=== PATIENT | female | born 1975 | race Caucasian/White ===

== ENCOUNTER 2019-08-17 23:03 | Emergency (ER) | payer MEDICAID, SELFPAY ==
[2019-08-17 23:04] VITALS: BP 162/86; PULSE 100; RESP 19; TEMP 36.3; O2SAT 98; BMI 33.0
--- NOTE | 2019-08-17 23:35 | EKG12_ITS ---
Test Reason : Blood Pressure : / mmHG Vent. Rate : 086 BPM Atrial Rate : 086 BPM P-R Int : 168 ms QRS Dur : 068 ms QT Int : 360 ms P-R-T Axes : 065 004 027 degrees QTc Int : 430 ms Normal sinus rhythm Possible Inferior infarct , age undetermined Abnormal ECG Confirmed by SORAYA TURPIN, TANA ([id number]), purchasing expeditor YARITZA DEMARCO ([id number]) on 08/20/2019 10:03:47 AM Referred By: KIP Confirmed By:MEREDITH LIRA MD
--- NOTE | 2019-08-17 23:36 | ED.VIS.GEN ---
History of Present Illness Chief Complaint: Palpitations Informant: Patient Onset: Hours - 1-2 Context: Sudden Onset - while sitting at rest, watching TV Timing: Intermittent, Lasts - about an hr Quality: racing HB Location: chest/heart Current Severity: gone Maximum Severity: Severe Worsened by: nothing Relieved by: nothing; spontaneously resolved, unk if sudden or gradual Associated Symptoms: anxiety, no other sx Narrative: Patient states she had racing heartbeat and her smart phone told her her heart rate went up to 146. She has checked it with her phone before because she has a significant history of anxiety, states her heart has become fast with anxiety before but has never been over 120s. She is a 2 pack a day smoker. No recent illnesses or new osnu-dcb-spvxyum medications with 1 exception: She states she takes 4 Vicodin per day for chronic pain. She was at her locker and found the pill on the ground right in front of her locker while she was standing there, it looked like 1 of her Vicodin, so she assumed that is what it was pick it up and put it in her pocket. She took it fairly close to before the symptoms started tonight. She has had no medication changes recently. She does no illicit substances or cocaine. She did not drink any caffeine today; he does drink caffeine some days but not every day. She had no presyncopal symptoms, chest pain, shortness of breath, edema, focal neurologic symptoms, or discomfort down in arm or into her jaw. She states that she does get chest pain off-and-on, it is brief, fairly frequent, her last episode was earlier today, it is mid chest and she cannot describe the discomfort because it is too short/brief. Prior similar symptoms: No - Past Medical History (1) Anxiety Status: Chronic Past Medical History - Allergies and Home Meds Allergies/Adverse Reactions: Allergies diphenhydramine HCl [From Benadryl] Allergy (Verified 08/17/19 23:06) Unknown Primary Care Physician: Naga Negrete MD [Primary Care Provider] - Lives: With Family Smoking Status: Current every day smoker Drugs: None Review of Systems General: Denies: Chills, Fever, Sweats Eyes: Denies: Visual changes - bilaterally, Diplopia ENT: Denies: Rhinorrhea, Sore throat Cardiovascular: Reports: Palpitations, Heart racing. Denies: Chest pain Respiratory: Denies: Dyspnea, Cough, Dyspnea on exertion Gastrointestinal: Denies: Abdominal pain, Nausea, Vomiting, Diarrhea, Melena, Hematochezia Genitourinary: Denies: Dysuria, Hematuria, Frequency Musculoskeletal: Denies: Back pain, Extremity Pain Skin: Denies: Rash, Wounds Neurological: Denies: Headache, Weakness, Numbness Psych: Reports: Anxiety - after symptoms developed, but not before. Denies: Suicidal thoughts Physical Exam Vital Signs/Narrative: Vital Signs Temp Pulse Resp BP Pulse Ox 08/17/19 23:04 97.4 F L 100 19 H 162/86 H 98 Inital Vital Signs reviewed: Yes General: Well nourished, Well developed, No Acute Distress Head: Normocephalic, Atraumatic Eyes: Perrl, EOMI ENT: Moist mucous membranes, No rhinorrhea Neck: Supple, Nontender, No JVD Cardiovascular: Regular rate, Regular rhythm, No murmurs, Normal S1, Normal S2 Respiratory: No distress, CTA bilaterally, Chest nontender Abdomen: Soft, Nontender, Nondistended, Normal bowel sounds Back: Nontender, Normal Inspection Extremities: Nontender, No edema. Negative for: Calf Tenderness Skin: Normal color, No rash, No Trauma Neurological: Alert, Oriented x3, Cranial nerves II-XII grossly intact, Normal Strength, Normal Sensation Psychological: Normal Mood, - - a little anxious Diagnostic/Tx/Re-eval Laboratory Results 08/17/19 08/17/19 23:35 23:35 WBC 9.1 RBC 4.45 Hgb 14.2 Hct 43.3 MCV 97.3 MCH 31.9 MCHC 32.8 RDW Std Deviation 45.7 H RDW Coeff of Obey 12.8 Plt Count 360 MPV 10.0 Immature Gran % (Auto) 0.300 Neut % (Auto) 51.1 Lymph % (Auto) 38.5 Pennington % (Auto) 8.2 Eos % (Auto) 1.5 Baso % (Auto) 0.4 Absolute Neuts (auto) 4.6 Absolute Lymphs (auto) 3.49 Nucleated RBC % 0 Sodium 143 Potassium 3.5 Chloride 109 H Carbon Dioxide 26.0 Anion Gap 8 BUN 12 Creatinine 0.66 Estim Creat Clear Calc 122.95 Est GFR (MDRD) Af Amer 124 Est GFR (MDRD) Non-Af 102 BUN/Creatinine Ratio 18.1 Glucose 104 Calcium 8.7 Troponin I < 0.015 - Rhythm Strip Rhythm Strip: Sinus Rhythm Rate: 86 Ectopy: None - EKG Initial EKG Interpretation: Sinus Rhythm, No Acute Injury Pattern, - - nonpathologic inf Q waves; otherwise, normal EKG - Medical Decision Making Patient had no recurrence of dysrhythmia while in the emergency department. All of her labs including troponin are normal. Her EKG is normal. She is asymptomatic except for her at one point she had 1 or 2 minutes of intermittent dull nonpleuritic discomfort in her mid chest that went along with her heartbeat. It did not give her any tachycardia, PVCs, other symptoms. Similar to what she has had frequently and briefly in the past. She is extremely anxious. As I discussed with her, I am not concluding that this cause her symptoms tonight, I cannot rule out the possibility of a dysrhythmia but she is low risk for cardiac or myocardial event by following up with specialist as an outpatient. She states she has had a stress test in the past that was negative, she had a Holter monitor at one point that was unremarkable but she does not know details. Advised to follow-up. All questions answered at the bedside. ED Disposition - Plan for ED Patient: Disposition: Home or Assisted Living Diagnosis: Anxiety, Palpitations Instructions: Palpitations Referrals: Tj Shah MD [STAFF PHYSICIAN] - (call for appt)
[2019-08-17 23:46] LABS: Absolute Lymphocyte Count 3.49 X10^3/uL (0.83-4.51); Absolute Neutrophil Count 4.6 X10^3/uL (2.0-7.7); Basophil# 0.04 X10^3/uL; Basophil% 0.4 % (0-1); Eosinophil# 0.14 X10^3/uL; Eosinophils% 1.5 % (0-5); Hematocrit 43.3 % (37-47); Hemoglobin 14.2 g/dL (12.0-15.0); Lymphocyte # 3.49 X10^3/ul (4.0); Lymphocyte % 38.5 % (19-41); Mean Corp Hgb Conc 32.8 g/dL (32-36); Mean Corpuscular Hgb 31.9 pg (27.0-32.0); Mean Corpuscular Volume 97.3 fL (81-99); Monocyte# 0.74 X10^3/uL; Monocyte% 8.2 % (0-10); NRBC Flagged by Analyzer 0 % (0-5); Neutrophil # 4.62 X10^3/uL (2.7-7.7); Neutrophil % 51.1 % (47-70); Platelet Count 360 K/mm3 (150-450); RBC Distribution Width CV 12.8 % (11.6-14.6); RBC Distribution Width SD 45.7 fl (35.1-43.9); Red Blood Count 4.45 M/mm3 (4.2-5.4); White Blood Count 9.1 K/mm3 (4.4-11.0)
[2019-08-18 00:03] LABS: Anion Gap 8 (5-15); BUN 12 mg/dL (7-18); BUN/Creat Ratio 18.1 RATIO (10-20); Calcium,Total 8.7 mg/dL (8.5-10.1); Chloride 109 mmol/L (98-107); Creatinine, Serum 0.66 mg/dL (0.55-1.02); EST Glomerular Filtration Rate 102 mL/min (>60); Est Glom Filt Rate - Afr Amer 124 mL/min (>60); Estimated Creatinine Clearance 122.95 ml/min; Glucose 104 mg/dL (74-106); Potassium 3.5 mmol/L (3.5-5.1); Sodium Level 143 mmol/L (136-145)
[2019-08-18 00:44] VITALS: BP 148/70; PULSE 85; RESP 14; O2SAT 97
== END 2019-08-18 00:45 | disposition home or self-care (01) ==
PROVIDERS: Emergency Provider Emergency Medicine; Family Provider Family Medicine; PCP Family Medicine
DX: F41.9 Anxiety disorder, unspecified (principal); R00.2 Palpitations; F17.210 Nicotine dependence, cigarettes, uncomplicated; Z88.8 Allergy status to other drugs, medicaments and biological substances
CPT/HCPCS: 80048; 84484; 85025; 93005; 99285; A4216

== ENCOUNTER → 2020-12-04 13:36 | Outpatient (CLI) | payer MEDICAID, SELFPAY ==
--- NOTE | 2020-12-04 13:39 | BI_ITS ---
MAMMOGRAPHY - BILATERAL SCREENING REASON FOR EXAM: Female, 45 years old. Routine annual screening examination. PERTINENT HISTORY: Non-contributory. TECHNIQUE: Digital bilateral breast juaquin (3D mammographic acquisition) in the CC and MLO projections. 2-D mediolateral oblique (MLO) and craniocaudad (CC) views of both breasts were obtained. CAD: Full Field Digital Mammography with Computer Added Detection was performed. COMPARISON: None. Baseline examination. FINDINGS: Breast Composition: There are scattered areas of fibroglandular density. There are no dominant masses or suspicious calcifications. No other significant abnormalities are identified. BI/SCRN MAMM (CAD)W/JUAQUIN BILAT IMPRESSION: Negative screening mammogram. Yearly followup mammogram recommended. (A) ASSESSMENT CATEGORY: BIRADS Category 1: Negative. A letter regarding these results will be sent to the patient by the facility within 30 days. Approximately 10% of breast cancers are not detected by mammography. A normal mammogram should not delay biopsy of a clinically suspicious abnormality. [id number] Electronically Signed: Kenny Weeks MD at 14:25 EDT , Service support ,
== END ==
PROVIDERS: PCP Family Medicine; Referring Provider Family Medicine; Visit Provider Family Medicine
DX: Z12.31 Encounter for screening mammogram for malignant neoplasm of breast (principal)
CPT/HCPCS: 77063; 77067

== ENCOUNTER 2022-07-23 05:59 | Day surgery (SDC) | payer MEDICAID, SELFPAY ==
[2022-07-22 11:15] LABS: Hematocrit 42.8 % (37-47); Hemoglobin 14.3 g/dL (12.0-15.0); Mean Corp Hgb Conc 33.4 g/dL (32-36); Mean Corpuscular Volume 98.8 fL (81-99); Mean Platelet Vol. 10.6 fl (6.2-12.0); Platelet Count 366 K/mm3 (150-450); RBC Distribution Width SD 47.3 fl (35.1-43.9); Red Blood Count 4.33 M/mm3 (4.2-5.4)
[2022-07-23] VITALS (10 sets, daily range): BP systolic 121–146; BP diastolic 75–117; PULSE 77–89; RESP 16–17; TEMP 36.3–37.2; O2SAT 96–98; BMI 34.0
--- NOTE | 2022-07-23 | EMB_PTH ---
PATIENT: YOVANY SUMNER I LOC: [facility] [place] U#:[id number] AGE/SX: 46/F ROOM: RE07/23/[address]: Dr. Jeanette Kulkarni DO : 1975 BED: DIS: 07/23/2022 SPEC #: [id number] RECD: 07/23/22 10:36 STATUS: DARIAN LINN #: [id number] TRACEY: 07/23/22 00:[address]: Jeanette Kulkarni DEPT: SURGICAL PATHOLOGY RECD BY: Lukasz Baxter ENTERED: 07/23/22 10:37 SP TYPE: ENDOM BX/C BRUCE DR: Dr. Naga Negrete MD Tissues: Endometrium, NOS Procedures: Surgery Specimen Level IV HEADER OPERATION: Hysteroscopy, D & C, polypectomy, Guerita ablation PRE-OP DIAGNOSIS: Menorrhagia TISSUE SUBMITTED: Endometrial curettings MICROSCOPIC DIAGNOSIS Endometrial curettings: Proliferative endometrium. A fragment of benign ectocervical epithelium. SJ:stoney 07/24/2022 MICROSCOPIC DESCRIPTION Slides are reviewed. GROSS DESCRIPTION Received in fixative is one container labeled with the patient's name and designated endometrial curettings. The specimen consists of multiple fragments of hemorrhagic soft tissue that in aggregate measure 7.5 x 3 x 0.3 cm. The entire specimen is submitted in three cassettes. / BRANDON:stoney 07/23/2022 TC:4 CPT: 83295
[2022-07-23 06:31] LABS: Internal QC Validated? YES +Cl - CLEAR BKGD; Pregnancy, Urine Negative Negative
--- NOTE | 2022-07-23 08:09 | DCINST_ITS ---
Discharge Instructions Diet Discharge Diet: No restrictions Activity Discharge Activity: May Drive (once you are more than 24 hours out from surgery) and May Shower (once you are more than 24 hours out from surgery) May resume sexual activity in: 1-2 weeks (no intercourse, tampons, hot tubs, baths, or pools while you are having the bleeding) Weight Bearing Status: Weight bearing as tolerated Lifting Restrictions: none Dressing / Incision Call your doctor if you observe: Fever of 101 or Higher, Coldness, Increased Pain, Numbness or Tingling, Change in Color, Inability to urinate, Inability to have a bowel movement, Using more than 1 pad per hour, Shortness of breath, Dizziness, Fainting spells, Swelling in the ankles, Chest pain, Increased palpitations (irregular heartbeat), Calf discomfort and Uncontrolled pain Follow Up Care Please Follow Up With: Jeanette Kulkarni DO When: 1-2 weeks Test Results: Test results from this visit will be discussed in further detail at your follow- up appointment, if applicable. Discharge Plan Admission Primary Reason for Your Visit: surgery Attending Provider: Jeanette Kulkarni Primary Care Provider: Naga Negrete Discharge Orders/Prescriptions Prescriptions: Continued lorazepam 0.5 MG tablet 1 mg PO QHS PRN PRN (Reason: Anxiety) hydrocodone-acetaminophen [Vicodin] 1 EACH tablet 2 tab PO Q4H PRN PRN (Reason: Pain) cyclobenzaprine 10 MG tablet 10 mg PO TID PRN PRN (Reason: Muscle Spasm) meloxicam 7.5 MG tablet 7.5 mg PO BID epinephrine 0.3 MG syringe 0.3 mg IM X1 Qty: 2 0RF amitriptyline 25 MG tablet 25 mg PO QHS PRN PRN (Reason: Anxiety) Referrals / Follow Up: Naga Negrete MD [Primary Care Provider] - Disposition Disposition (needs filled in before D/C Order can be placed): Home, Self Care
--- NOTE | 2022-07-23 08:13 | PCM.OPRPT ---
Problems Associated Problem List Diagnoses (1) Menorrhagia: Report of Operation Date of Procedure: 07/23/22 Pre-Operative Diagnosis: Menorrhagia, endometrial polyp on pelvic US Post-Operative Diagnosis: Menorrhagia Surgery/Procedure Performed:: Hysteroscopy, D&C, Guerita uterine ablation Description of Surgical Findings:: No polyps or fibroids noted. Normal appearing uterine cavity with bilateral tubal ostia visualized. Uterus sounded to 8 cm. Cervical length of 3.5 cm. Surgeon: Jeanette Kulkarni concrete buster operator: None Type of Anesthesia: MAC Special Medications: None Specimen's removed: Endometrial curettings Drains: None Estimated Blood Loss (mL): < 50 cc Fluids Replaced: 450 cc deficit Description of Procedure: The patient was taken to the operating room where MAC anesthesia was found to be adequate. She was prepped and draped in the dorsal lithotomy position using yellowfin stirrups. A weighted speculum was placed in the vagina to expose the cervix. The anterior lip of the cervix was grasped with a single-tooth tenaculum. The cervix was already dilated to accommodate the Symphion hysteroscope. The hysteroscope was advanced into the uterus, and normal saline was used as distention media. The uterine cavity was normal-appearing and bilateral tubal ostia were visualized. There were no polyps or fibroids noted in the uterus or cervix. This resecting Symphion device was used to sample the endometrium, without entry into the myometrium. The hysteroscope was then removed. A significant amount of fluid was noted on the floor at this time. Sharp curettage was then performed for moderate amount of tissue. The endometrial curettings were sent to the pathologist for review. Using the tapered cervical length measurement device, the cervical length was measured at 3 to 4 cm. The hysteroscope was then advanced to also measure the cervical length. Cervical length was found to be 3.5 cm. The Guerita ablation device was set to a uterine cavity length of 4.5 cm. The Guerita device passed the cavity assessment test. The Guerita uterine ablation was performed in usual sterile fashion. The device was removed. Bleeding was hemostatic. All instruments were removed from the vagina. Vaginal sweep was performed. Instrument sponge counts were correct. The patient was taken to recovery in stable condition. Grafts/Implants Used: None Complications None Admit VTE Documentation VTE Present on Admission: No VTE Mechan Device Prophylaxis: SCD's
[2022-07-23] MEDS: Lactated Ringers 1,000 ML 15 ML IV (08:45)
== END 2022-07-23 09:41 | disposition home or self-care (01) ==
LOC: SDC 06:00 → AC 06:00
PROVIDERS: PCP Family Medicine; Referring Provider Obstetrics & Gynecology; Visit Provider Obstetrics & Gynecology
PROC: 0UB98ZZ Excision of Uterus, Via Natural or Artificial Opening Endoscopic (ICD-10-PCS; CPT 58558; principal; 2022-07-23 07:15)
DX: N92.0 Excessive and frequent menstruation with regular cycle (principal); N84.0 Polyp of corpus uteri; K21.9 Gastro-esophageal reflux disease without esophagitis; Z98.51 Tubal ligation status; F17.210 Nicotine dependence, cigarettes, uncomplicated; N92.4 Excessive bleeding in the premenopausal period
CPT/HCPCS: 58563; 00952; 36415; 81025; 85027; 86850; 86900; 86901; 88305; J7120; J2405

== ENCOUNTER 2025-02-23 13:42 | Inpatient (IN) | payer MEDICAID, SELFPAY ==
[2025-02-23] VITALS (25 sets, daily range): BP systolic 107–151; BP diastolic 63–99; PULSE 72–97; RESP 16–31; TEMP 36.3–36.8; O2SAT 67–98; BMI 35.4; BMI 34.8
--- NOTE | 2025-02-23 13:47 | ED.RN ---
Arrives with complaint of chest pain was 67% RA with blue/purple lips and states she cannot breathe.
[2025-02-23] MEDS: MethylPREDNISolone 125 MG/2 ML Vial IV (14:04)
[2025-02-23] MEDS: Ipratropium/Albuterol Sulfate 3 ML AMPUL.NEB INHALATION (14:04)
--- NOTE | 2025-02-23 14:05 | RAD_ITS ---
PROCEDURE: CHEST 1 VIEW (PORTABLE) 02/23/2025 REASON FOR EXAM: DYSPNEA TECHNIQUE: Frontal view of the chest. FINDINGS: The cardiac and mediastinal contours are normal. The lungs are clear. RAD/Chest 1 View (Portable) IMPRESSION: NEGATIVE SINGLE VIEW OF THE CHEST. Reading [facility]
[2025-02-23 14:10] LABS: Absolute Lymphocyte Count 1.85 X10^3/uL (0.83-4.51); Absolute Neutrophil Count 10.1 X10^3/uL (2.0-7.7); Basophil# 0.05 X10^3/uL; Basophil% 0.4 % (0-1); Eosinophil# 0.01 X10^3/uL; Eosinophils% 0.1 % (0-5); Hemoglobin 17.3 g/dL (12.0-15.0); Lymphocyte # 1.85 X10^3/ul (0.83-4.51); Lymphocyte % 14.2 % (19-41); Mean Corp Hgb Conc 31.1 g/dL (32-36); Mean Corpuscular Hgb 31.7 pg (27.0-32.0); Mean Platelet Vol. 11.3 fl (6.2-12.0); Monocyte% 7.7 % (0-10); NRBC Flagged by Analyzer 0 % (0-5); Neutrophil % 77.3 % (47-70); Platelet Count 264 K/mm3 (150-450); RBC Distribution Width CV 14.6 % (11.6-14.6); RBC Distribution Width SD 54.3 fl (35.1-43.9); Red Blood Count 5.45 M/mm3 (4.2-5.4); White Blood Count 13.1 K/mm3 (4.4-11.0)
[2025-02-23 14:11] LABS: Hematocrit 55.6 % (37-47)
[2025-02-23] MEDS: Albuterol 2.5 MG/3 ML VIAL.NEB. INHALATION ×3 (14:11→15:37)
--- NOTE | 2025-02-23 14:15 | CT_ITS ---
EXAM: CT Angiography Chest Without and With Intravenous Contrast CLINICAL INDICATION: PULMONARY EMBOLSIM TECHNIQUE: Axial computed tomographic angiography images of the chest without and with intravenous contrast. This CT exam was performed using one or more of the following dose reduction techniques: automated exposure control, adjustment of the mA and/or kV according to patient size, and/or use of iterative reconstruction technique. MIP reconstructed images were created and reviewed. COMPARISON: No relevant prior studies available. FINDINGS: LIMITATIONS: Suboptimal opacification of the pulmonary arteries. PULMONARY ARTERIES: No pulmonary embolism is identified. Some of the distal pulmonary arteries cannot be evaluated due to suboptimal opacification. AORTA: No acute findings. No thoracic aortic aneurysm. LUNGS AND PLEURAL SPACES: Lung emphysema/COPD. Right lower lobe atelectasis or scarring. No mass. No significant effusion. No pneumothorax. HEART: Unremarkable. No cardiomegaly. No significant pericardial effusion. No evidence of RV dysfunction. BONES/JOINTS: No acute fracture. No dislocation. SOFT TISSUES: Unremarkable. LYMPH NODES: Unremarkable. No enlarged lymph nodes. CT/CTA Chest W/WO Contrast IMPRESSION: No pulmonary embolism is identified. Some of the distal pulmonary arteries can not be evaluated due to suboptimal opacification. Reading Location[facility]
[2025-02-23 14:28] LABS: Anion Gap 11 (5-15); BUN 16 mg/dL (4-19); BUN/Creat Ratio 22.4 RATIO (10-20); Calcium,Total 9.3 mg/dL (7.6-11.0); Carbon Dioxide 30.2 mmol/L (21.0-32.0); Chloride 98 mmol/L (98-108); EST Glomerular Filtration Rate 105 (>60); Estimated Creatinine Clearance 88.09 ml/min (50-250); Glucose 123 mg/dL (70-99); Potassium 4.8 mmol/L (3.3-5.1); Sodium Level 139 mmol/L (133-145)
[2025-02-23] MEDS: Ketorolac 30 MG/ML Syringe IV (15:01)
[2025-02-23] MEDS: 0.9% Normal Saline (1000mL) 1,000 ML 999 ML IV (15:03)
--- NOTE | 2025-02-23 15:03 | ED.VIS.CHEST ---
HPI History of Present Illness Chief Complaint: Chest Pain Informant: patient Narrative Narrative: 49-year-old female with a history of COPD presenting to the emergency room with chief complaint of chest pain. Patient states that yesterday she lifted a couple of cases of pop up almost over her head. This morning when she awoke she felt like she could not take a deep breath and she noted chest pain (unable to qualify it other than pain) over the anterior lower chest. She notes some pain in the mid back. Worse with movement. She states that she was feeling disorientated particularly with ambulation and because she could not breathe came to emergency. She states she has an inhaler at home which she thinks may be Symbicort. She denies any fever significant cough. States that she recently started vaping a couple weeks ago. She denies DVT PE risk factors. Patient noted to be 67% on room air in triage. [facility] Medical History Alcohol use Arthritis Back pain Gastric reflux Emphysema, unspecified Shortness of breath on exertion Hoarseness Smoker History of stress test Home Medications ?Medication ?Instructions ?Recorded ?Last Taken ?Type lorazepam 0.5 mg tablet 1 mg PO QHS PRN PRN Anxiety 10/07/13 Unknown History cyclobenzaprine 10 mg tablet 10 mg PO TID PRN PRN Muscle Spasm 01/06/15 Unknown History meloxicam 7.5 mg tablet 7.5 mg PO BID 01/06/15 Unknown History epinephrine 0.3 mg/0.3 mL 0.3 mg (0.3 mL) IM X1 #2 syringes 05/04/16 Unknown Rx injection, auto-injector duloxetine 60 mg capsule,delayed 60 mg PO DAILY 09/25/22 Unknown History release (Cymbalta) albuterol sulfate 2.5 mg/3 mL 2.5 mg continuous nebulization Q6H 02/23/25 Unknown History (0.083 %) solution for nebulization PRN PRN shortness of breath or wheezing albuterol sulfate 90 mcg/actuation 1 - 2 puff inhalation Q6H 02/23/25 Unknown History aerosol inhaler amitriptyline 50 mg tablet 50 mg PO QHS 02/23/25 Unknown History budesonide-formoterol HFA 160 2 puff inhalation BID 02/23/25 Unknown History mcg-4.5 mcg/actuation aerosol inhaler (Symbicort) escitalopram oxalate 20 mg tablet 20 mg PO DAILY 02/23/25 Unknown History oxycodone-acetaminophen 10 mg-325 0.5 - 1 tab PO Q8H PRN PRN pain 02/23/25 Unknown History mg tablet Allergy/AdvReac Type Severity Reaction Status Date / Time diphenhydramine HCl (From Allergy Unknown Verified 02/23/25 16:02 Benadryl) sulfamethoxazole Allergy PT UNSURE Verified 02/23/25 16:02 OF REACTION tramadol Allergy Other Verified 02/23/25 16:02 Surgical History History of tubal ligation History of selective injection of anesthetic agent around lumbar nerve root History of foot surgery History of Social History Smoking Status: Current every day smoker tobacco type: cigarettes Tobacco: How many years used: 30 ROS ROS ED Constitutional Constitutional ED: Denies chills, fever(s) or weight loss Eyes Eyes: Denies change in vision or diplopia ENT ENT ED: Denies ear pain, rhinorrhea or sore throat Cardiovascular Cardiovascular: Reports as per HPI and chest pain; Denies orthopnea, palpitations or racing heartbeat Respiratory/Chest Respiratory/Chest: Reports dyspnea; Denies cough or orthopnea Gastrointestinal Gastrointestinal: Denies abdominal pain, diarrhea, nausea or vomiting Genitourinary Genitourinary ED: Denies dysuria, hematuria or urinary frequency Musculoskeletal Musculoskeletal: Denies arthralgias or myalgias Integumentary Denies abscess or rash Neurologic Neurologic: Denies headache(s) or weakness Psychiatric Psychiatric: Denies anxiety, depression, suicidal ideation or suicidal thoughts Endocrine Endocrinology: Denies polydipsia, polyphagia or polyuria Allergic/Immunologic Allergic/Immunologic ED: Denies mouth swelling, tongue swelling or urticaria EXAM Physical Exam Const Vital Signs: 02/23/25 13:42 02/23/25 13:50 02/23/25 13:50 Temperature 98.3 F Temperature Source Oral Pulse Rate 91 Respiratory Rate 29 H Respiratory Effort Short of Breath Labored Respiratory Depth Respiratory Pattern Tachypnea Blood Pressure 151/99 H Blood Pressure Mean 116 Pulse Ox 67 97 Oxygen Delivery Method Room Air Nasal Cannula Oxygen Flow Rate (L/min) 6 02/23/25 13:54 02/23/25 14:04 02/23/25 14:04 Temperature 98.3 F Temperature Source Oral Pulse Rate 92 90 Respiratory Rate 31 H 24 H Respiratory Effort Respiratory Depth Respiratory Pattern Blood Pressure 151/99 H Blood Pressure Mean 116 Pulse Ox 94 95 Oxygen Delivery Method Nasal Cannula Nasal Cannula Oxygen Flow Rate (L/min) 5 5 02/23/25 14:06 02/23/25 14:06 02/23/25 14:09 Temperature Temperature Source Pulse Rate 92 Respiratory Rate 21 H Respiratory Effort Short of Breath Labored Respiratory Depth Shallow Respiratory Pattern Tachypnea Blood Pressure Blood Pressure Mean Pulse Ox 96 95 Oxygen Delivery Method Nasal Cannula Nasal Cannula Oxygen Flow Rate (L/min) 5 5 02/23/25 14:15 02/23/25 14:30 02/23/25 14:30 Temperature Temperature Source Pulse Rate 93 96 Respiratory Rate 22 H 27 H Respiratory Effort Respiratory Depth Respiratory Pattern Blood Pressure 130/94 H 112/96 H 112/96 H Blood Pressure Mean 104 101 101 Pulse Ox 92 Oxygen Delivery Method Oxygen Flow Rate (L/min) 02/23/25 14:45 02/23/25 14:46 02/23/25 15:00 Temperature Temperature Source Pulse Rate 97 96 Respiratory Rate 29 H 27 H Respiratory Effort Respiratory Depth Respiratory Pattern Blood Pressure 131/73 H 133/85 H Blood Pressure Mean 92 95 Pulse Ox 91 90 Oxygen Delivery Method Oxygen Flow Rate (L/min) 02/23/25 15:04 02/23/25 15:07 02/23/25 15:15 Temperature 98.1 F Temperature Source Oral Pulse Rate 91 Respiratory Rate 28 H Respiratory Effort Respiratory Depth Respiratory Pattern Blood Pressure 133/85 H 107/71 Blood Pressure Mean 101 82 Pulse Ox 88 90 Oxygen Delivery Method Nasal Cannula Nasal Cannula Oxygen Flow Rate (L/min) 5 6 02/23/25 15:30 02/23/25 15:37 02/23/25 15:37 Temperature Temperature Source Pulse Rate 85 86 Respiratory Rate 16 19 H Respiratory Effort Respiratory Depth Respiratory Pattern Blood Pressure 109/72 Blood Pressure Mean 82 Pulse Ox 96 98 Oxygen Delivery Method Nasal Cannula Oxygen Flow Rate (L/min) 6 02/23/25 15:45 02/23/25 15:54 02/23/25 16:00 Temperature 98.1 F Temperature Source Oral Pulse Rate 87 88 83 Respiratory Rate 25 H 22 H 20 H Respiratory Effort Respiratory Depth Respiratory Pattern Blood Pressure 119/75 119/75 109/69 Blood Pressure Mean 89 89 80 Pulse Ox 95 94 98 Oxygen Delivery Method Nasal Cannula Nasal Cannula Oxygen Flow Rate (L/min) 3 3 02/23/25 16:00 Temperature 98.2 F Temperature Source Oral Pulse Rate 82 Respiratory Rate 16 Respiratory Effort Respiratory Depth Respiratory Pattern Blood Pressure 110/75 Blood Pressure Mean 86 Pulse Ox 95 Oxygen Delivery Method Nasal Cannula Oxygen Flow Rate (L/min) 3 Positive well nourished and well developed General Appearance ED: well developed HEENT Reports normocephalic, head/scalp atraumatic and moist mucous membranes Eyes PERRL and EOMs intact bilaterally Neck no lymphadenopathy, supple and no JVD Resp Resp Narrative: Patient is tachypneic with significantly diminished bilateral breath sounds and expiratory wheezing. Auscultation: wheezes and diminished lung sounds Cardio regular rate, regular rhythm and no murmurs GI normal to inspection, nondistended, normoactive bowel sounds and non-tender Palpation: soft Back/Spine no CVA tenderness and normal ROM Extremity normal to inspection General Extremety ED: Negative for edema General Extremity: Negative for edema Neuro oriented x3 and CN's II-XII intact bilaterally Sensorium / Orientation: alert Motor Exam: strength 5/5 throughout Psych mental status grossly normal Mood & Affect: Negative for depressed or tearful Skin no rashes or lesions noted and no wounds MDM MDM MDM Narrative Medical decision making narrative: Differential diagnosis includes but not limited to COPD exacerbation pneumothorax pulmonary embolism acute coronary syndrome thoracic chest myofascial strain pneumonia pleural effusion EKG done upon arrival shows a normal sinus rhythm at a rate of 93 bpm. Patient was placed on supplemental oxygen. White count 13.1 creatinine 0.70 glucose 123. My independent interpretation of the chest x-ray is cardiomegaly no acute process. CTA of the chest was obtained. This does not demonstrate obvious pulmonary embolism though distal pulmonary arteries were difficult to evaluate given suboptimal opacification per radiology. Troponin 2 is down to 46. proBNP 714. Patient received breathing treatments and Solu-Medrol. She also received a dose of Toradol and her scheduled dose of oxycodone. Patient is down to 3 L nasal cannula. Plan of care is admission to the hospital History & Record Review Discussion w/independent historian: Patient and Family Additional record(s) reviewed:: Prior outpatient record, Prior ED visit and Prior labs Lab Data Attestation: I reviewed the patient's lab results. Labs: Laboratory Results - last 24 hr 02/23/25 02/23/25 13:50 15:50 WBC 13.1 H RBC 5.45 H Hgb 17.3 H Hct 55.6 H MCV 102.0 H MCH 31.7 MCHC 31.1 L RDW Std Deviation 54.3 H RDW Coeff of Obey 14.6 Plt Count 264 MPV 11.3 Immature Gran % (Auto) 0.300 Neut % (Auto) 77.3 H Lymph % (Auto) 14.2 L [place] % (Auto) 7.7 Eos % (Auto) 0.1 Baso % (Auto) 0.4 Absolute Neuts (auto) 10.1 H Absolute Lymphs (auto) 1.85 Nucleated RBC % 0 Sodium 139 Potassium 4.8 Chloride 98 Carbon Dioxide 30.2 Anion Gap 11 BUN 16 Creatinine 0.70 Estim Creat Clear Calc 88.09 Est GFR (MDRD) Non-Af 105 BUN/Creatinine Ratio 22.4 H Glucose 123 H Calcium 9.3 Troponin T High Sens 63 H* Troponin T Hi Sens 2 Hr 46 H NT pro BNP II 714 Radiography Diagnostic Testing: Clinical Impression(s) from Imaging Studies Chest X-Ray 02/23/25 14:05 IMPRESSION: NEGATIVE SINGLE VIEW OF THE CHEST. Reading Location: [facility] Chest CTA 02/23/25 14:15 IMPRESSION: No pulmonary embolism is identified. Some of the distal pulmonary arteries cannot be evaluated due to suboptimal opacification. Reading Location: [facility] EKG Initial EKG: Attestation: I personally reviewed and interpreted this EKG as follows: Comments: Normal sinus rhythm ventricular rate of 93 bpm. Management Discussion w/another healthcare provider: Hospitalist (Dr Locke) Discharge Plan Triage Chief Complaint: Chest Pain ED Provider: Cristofer Avila Dx/Rx/DC Orders Clinical Impression: Acute exacerbation of chronic obstructive pulmonary disease, Acute hypoxic respiratory failure, Chest pain Prescriptions: No Action duloxetine [Cymbalta] 60 mg capsule,delayed release(DR/EC) 60 mg PO DAILY lorazepam 0.5 MG tablet 1 mg PO QHS PRN PRN (Reason: Anxiety) cyclobenzaprine 10 MG tablet 10 mg PO TID PRN PRN (Reason: Muscle Spasm) meloxicam 7.5 MG tablet 7.5 mg PO BID epinephrine 0.3 MG syringe 0.3 mg IM X1 Qty: 2 0RF albuterol sulfate 2.5 mg /3 mL (0.083 %) solution for nebulization 2.5 mg continuous nebulization Q6H PRN PRN (Reason: shortness of breath or wheezing) amitriptyline 50 mg tablet 50 mg PO QHS oxycodone-acetaminophen 10-325 mg tablet 0.5 - 1 tab PO Q8H PRN PRN (Reason: pain) escitalopram oxalate 20 mg tablet 20 mg PO DAILY albuterol sulfate 90 mcg/actuation HFA aerosol inhaler 1 - 2 puff INHALATION Q6H budesonide-formoterol [Symbicort] 160-4.5 mcg/actuation HFA aerosol inhaler 2 puff INHALATION BID Primary Care Provider: Naga Negrete Referrals: Naga Negrete MD [Primary Care Provider] - Print Language: Macedonian
[2025-02-23 15:08] LABS: Pro- Brain NATRIURETIC PEPTIDE 714 pg/mL (<=900); Troponin T High Sensitivity 63 ng/L (<=14)
[2025-02-23] MEDS: oxyCODONE 5 MG Tablet 10 MG PO ×2 (16:13→20:02)
[2025-02-23 16:29] LABS: Troponin T High Sens 2 HR 46 ng/L (<=14)
--- NOTE | 2025-02-23 16:58 | HP.PCM.HOS_ITS ---
HPI - General General Date of Admission: 02/23/25 Date of Service: 02/23/25 Chief Complaint: SOB HPI Narrative YOVANY SUMNER, is a 49 F with pmhx of COPD with smoking history, and arthritis who presents to the ER with SOB. The patient woke up feeling like it was hard to breathe. She had pain in the chest with taking a deep breath, and was SOB at rest and with exertion. Chest pain was across the lower chest/diaphragm anteriorly. She attributed the pain to hurting her back yesterday while lifting 24 packs of beverages up to neck height. Pt was brought to the ER and found to have an O2 sat of 67% on RA. She does not use home O2. She improved on 6lpm and remained stable weaning down to 3lpm o2 via NC. Troponin in the ER was somewhat elevated. BNP negative. CXR and CTA negative. She has not felt ill this week or today. She currently is resting comfortably in bed with no SOB. She has no cough. She still has some pain with taking a deep breath. [facility] Medical History Alcohol use Arthritis Back pain Gastric reflux Emphysema, unspecified Shortness of breath on exertion Hoarseness Smoker History of stress test Home Medications ?Medication ?Instructions ?Recorded ?Last Taken ?Type lorazepam 0.5 mg tablet 1 mg PO QHS PRN PRN Anxiety 10/07/13 Unknown History cyclobenzaprine 10 mg tablet 10 mg PO TID PRN PRN Musc le Spasm 01/06/15 Unknown History meloxicam 7.5 mg tablet 7.5 mg PO BID 01/06/15 Unkno wn History epinephrine 0.3 mg/0.3 mL 0.3 mg (0.3 mL) IM X1 #2 syr inges 05/04/16 Unknown Rx injection, auto-injector duloxetine 60 mg capsule,delayed 60 mg PO DAILY Unknown History release (Cymbalta) albuterol sulfate 2.5 mg/3 mL 2.5 mg continuous nebuli zation Q6H 02/23/25 Unknown History (0.083 %) solution for nebulization PRN PRN shortness of breath or wheezing albuterol sulfate 90 mcg/actuation 1 - 2 puff inhalati on Q6H 02/23/25 Unknown History aerosol inhaler amitriptyline 50 mg tablet 50 mg PO QHS 02/23/25 Unkno wn History budesonide-formoterol HFA 160 2 puff inhalation BID Unknown History mcg-4.5 mcg/actuation aerosol inhaler (Symbicort) escitalopram oxalate 20 mg tablet 20 mg PO DAILY 02/23 Unknown History oxycodone-acetaminophen 10 mg-325 0.5 - 1 tab PO Q8H P RN PRN pain 02/23/25 Unknown History mg tablet Allergy/AdvReac Type Severity Reaction Status Date / Time diphenhydramine HCl (From Allergy Unknown Verified 02/23/25 16:02 Benadryl) sulfamethoxazole Allergy PT UNSURE Verified 02/23/25 16:02 OF REACTION tramadol Allergy Other Verified 02/23/25 16:02 Surgical History History of tubal ligation History of selective injection of anesthetic agent around lumbar nerve root History of foot surgery History of Social History Smoking Status: Current every day smoker tobacco type: cigarettes Tobacco: How many years used: 30 ROS Constitutional Constitutional: Denies chills or fatigue Eyes Eyes: Denies blurry vision ENT HEENT: Denies abnormal hearing Cardiovascular Cardiovascular: Reports chest pain; Denies edema, lightheadedness, orthopnea or palpitations Respiratory/Chest Respiratory/Chest: Reports dyspnea, shortness of breath at rest, shortness of breath with exertion and wheezing; Denies cough Gastrointestinal Gastrointestinal: Denies abdominal pain, diarrhea, nausea or vomiting Genitourinary Genitourinary: Denies burning urination Musculoskeletal Musculoskeletal: Reports arthralgias and back pain Neurologic Neurologic: Denies abnormal gait Psychiatric Psychiatric: Denies anxiety or depression Endocrine Endocrinology: Denies change in body appearance Hematologic/Lymphatic Hematologic/Lymphatic: Denies anemia Allergic/Immunologic Allergic/Immunologic: Denies rhinitis Vital Signs Vital Signs Vital Signs: 02/23/25 13:42 02/23/25 13:50 02/23/25 13:50 Temperature 98.3 F Temperature Source Oral Pulse Rate 91 Respiratory Rate 29 H Respiratory Effort Short of Breath Labored Respiratory Depth Respiratory Pattern Tachypnea Blood Pressure 151/99 H Blood Pressure Mean 116 Pulse Ox 67 97 Oxygen Delivery Method Room Air Nasal Cannula Oxygen Flow Rate (L/min) 6 02/23/25 13:54 02/23/25 14:04 02/23/25 14:04 Temperature 98.3 F Temperature Source Oral Pulse Rate 92 90 Respiratory Rate 31 H 24 H Respiratory Effort Respiratory Depth Respiratory Pattern Blood Pressure 151/99 H Blood Pressure Mean 116 Pulse Ox 94 95 Oxygen Delivery Method Nasal Cannula Nasal Cannula Oxygen Flow Rate (L/min) 5 5 02/23/25 14:06 02/23/25 14:06 02/23/25 14:09 Temperature Temperature Source Pulse Rate 92 Respiratory Rate 21 H Respiratory Effort Short of Breath Labored Respiratory Depth Shallow Respiratory Pattern Tachypnea Blood Pressure Blood Pressure Mean Pulse Ox 96 95 Oxygen Delivery Method Nasal Cannula Nasal Cannula Oxygen Flow Rate (L/min) 5 5 02/23/25 14:15 02/23/25 14:30 02/23/25 14:30 Temperature Temperature Source Pulse Rate 93 96 Respiratory Rate 22 H 27 H Respiratory Effort Respiratory Depth Respiratory Pattern Blood Pressure 130/94 H 112/96 H 112/96 H Blood Pressure Mean 104 101 101 Pulse Ox 92 Oxygen Delivery Method Oxygen Flow Rate (L/min) 02/23/25 14:45 02/23/25 14:46 02/23/25 15:00 Temperature Temperature Source Pulse Rate 97 96 Respiratory Rate 29 H 27 H Respiratory Effort Respiratory Depth Respiratory Pattern Blood Pressure 131/73 H 133/85 H Blood Pressure Mean 92 95 Pulse Ox 91 90 Oxygen Delivery Method Oxygen Flow Rate (L/min) 02/23/25 15:04 02/23/25 15:07 02/23/25 15:15 Temperature 98.1 F Temperature Source Oral Pulse Rate 91 Respiratory Rate 28 H Respiratory Effort Respiratory Depth Respiratory Pattern Blood Pressure 133/85 H 107/71 Blood Pressure Mean 101 82 Pulse Ox 88 90 Oxygen Delivery Method Nasal Cannula Nasal Cannula Oxygen Flow Rate (L/min) 5 6 02/23/25 15:30 02/23/25 15:37 02/23/25 15:37 Temperature Temperature Source Pulse Rate 85 86 Respiratory Rate 16 19 H Respiratory Effort Respiratory Depth Respiratory Pattern Blood Pressure 109/72 Blood Pressure Mean 82 Pulse Ox 96 98 Oxygen Delivery Method Nasal Cannula Oxygen Flow Rate (L/min) 6 02/23/25 15:45 02/23/25 15:54 02/23/25 16:00 Temperature 98.1 F Temperature Source Oral Pulse Rate 87 88 83 Respiratory Rate 25 H 22 H 20 H Respiratory Effort Respiratory Depth Respiratory Pattern Blood Pressure 119/75 119/75 109/69 Blood Pressure Mean 89 89 80 Pulse Ox 95 94 98 Oxygen Delivery Method Nasal Cannula Nasal Cannula Oxygen Flow Rate (L/min) 3 3 02/23/25 16:00 02/23/25 16:42 Temperature 98.2 F 98.2 F Temperature Source Oral Pulse Rate 82 82 Respiratory Rate 16 16 Respiratory Effort Respiratory Depth Respiratory Pattern Blood Pressure 110/75 110/75 Blood Pressure Mean 86 86 Pulse Ox 95 95 Oxygen Delivery Method Nasal Cannula Oxygen Flow Rate (L/min) 3 Weight Weight: 76.839 kg Body Mass Index (BMI) 35.4 Physical Exam Const alert, oriented x3 and no apparent distress Constitutional Narrative: overweight General Appearance: cooperative HEENT normocephalic and head/scalp atraumatic Eyes PERRL Neck no lymphadenopathy Resp normal respiratory effort Resp Narrative: diminished throughout Auscultation: crackles bilateral base (faint) and wheezes expiratory wheezes (throughout) Cardio regular rate, regular rhythm and no murmurs GI normal to inspection, nondistended, normoactive bowel sounds, soft to palpation, non-tender and non-distended Extremity normal to inspection and no clubbing, cyanosis or edema Neuro oriented x3 Sensorium / Orientation: awake and alert Psych affect normal Results Lab / Micro Data 02/23/25 13:50 02/23/25 13:50 Labs: Laboratory Results - last 24 hr 02/23/25 13:50: WBC 13.1 H, RBC 5.45 H, Hgb 17.3 H, Hct 55.6 H, MCV 102.0 H, MCH 31.7, MCHC 31.1 L, RDW Std Deviation 54.3 H, RDW Coeff of Obey 14.6, Plt Count 264, MPV 11.3, Immature Gran % (Auto) 0.300, Neut % (Auto) 77.3 H, Lymph % (Auto) 14.2 L, [place] % (Auto) 7.7, Eos % (Auto) 0.1, Baso % (Auto) 0.4, Absolute Neuts (auto) 10.1 H, Absolute Lymphs (auto) 1.85, Nucleated RBC % 0, Sodium 139, Potassium 4.8, Chloride 98, Carbon Dioxide 30.2, Anion Gap 11, BUN 16, Creatinine 0.70, Estim Creat Clear Calc 88.09, Est GFR (MDRD) Non-Af 105, B UN/Creatinine Ratio 22.4 H, Glucose 123 H, Calcium 9.3, Troponin T High Sens 63 H*, NT pro BNP II 714 02/23/25 15:50: Troponin T Hi Sens 2 Hr 46 H Imaging Radiology Impression Chest X-Ray 02/23/25 14:05 IMPRESSION: NEGATIVE SINGLE VIEW OF THE CHEST. Reading Location: [facility] Chest CTA 02/23/25 14:15 IMPRESSION: No pulmonary embolism is identified. Some of the distal pulmonary arteries cannot be evaluated due to suboptimal opacification. Reading Location: [facility] Assessment & Plan Assessment/Plan (1) Acute hypoxic respiratory failure: PLAN: 1. Acute hypoxic respiratory failure 2/2 Acute exacerbation of COPD - severely wheezing throughout all santizo. O2 67% initially on room air now stable on 3lpm O2 via NC. No O2 use at baseline. CXR neg, CTA neg for PE. BNP normal. Leukocytosis of 13.1 however no other symptoms or findings indicative of acute infectious process. -admit to med surg -Start solumedrol, aerosols, azithromycin. -wean o2 as tolerated 2. Chest pain - suspected musculoskeletal. atypical and occurring with deep breathing, and pt relates it to hurting her back yesterday lifting heavy 24 packs of drinks. 3. Abnormal troponin - suspected due to demand ischemia. EKG negative. Initial troponin 63, down to 46 on recheck. 4. Nicotine abuse - smoked 20-30 years. patch if desired. contributing to #1. She has cut down to about 3/4 ppd but also started vaping about 2 weeks ago. 5. Hx arthritis of the back - tylenol prn, cyclobenzaprine prn, meloxicam, elavil 6. Hx anx/dep on escitalopram, ativan DVT ppx: lovenox DC planning: attempt to wean off O2 prior to DC Code status: Full Code This patient was seen by Jamari Dejesus PA-C under the supervision of Doctor Locke (2) Acute exacerbation of chronic obstructive pulmonary disease: (3) Chest pain:
[2025-02-23] MEDS: Azithromycin 250 MG Tablet 500 MG PO (18:26)
[2025-02-23 19:53] LABS: Troponin T High Sens 4 HR 34 ng/L (<=14)
[2025-02-23] MEDS: cycloBENZAPRine HCl 10 MG Tablet PO (21:17)
[2025-02-23] MEDS: Escitalopram Oxalate 20 MG Tablet PO (21:19)
[2025-02-23] MEDS: 0.9% Saline Lock 10 ML Syringe IV (21:22)
[2025-02-23] MEDS: Nitroglycerin (INPATIENT USE) 0.4 MG TAB.SUBL SL (21:24)
[2025-02-23] MEDS: Heparin Injection (Vial) 5,000 UNIT/ML VIAL 5000 UNIT SC (21:30)
--- NOTE | 2025-02-23 22:08 | PCM.HOSP.N ---
Hospitalist Note Called as patient was experiencing significant chest pain that she rated 7 out of 10. EKG on admission was reviewed in comparison with EKG at the time of symptoms. Patient had T wave inversions in the anterior lateral leads that did not appear to be there previously. She was given nitro but was also given oxycodone. Patient states she felt the nitro did nothing and the oxycodone helped. She did have elevated enzymes on admission but they trended down and it was thought to be demand ischemia from COPD exacerbation. Given changes in EKG will order echocardiogram and signout to primary attending. Add aspirin 81 mg daily and atorvastatin 80 mg daily. Check lipid panel.
--- NOTE | 2025-02-23 22:09 | ECHOD_ITS ---
Reason For Study Reason For Study: Chest pain Procedure This was a 2D Doppler, Color Flow transthoracic echocardiogram. Exam performed portable in patient room. Left Ventricle Normal left ventricle. The LV ejection fraction is 60 %. Left ventricular systolic function is normal. Right Ventricle Normal right ventricle. Normal systolic function. Atria Normal left atrium. Normal right atrium. Mitral Valve There is no stenosis. No mitral valve insufficiency. Tricuspid Valve Normal tricuspid valve. Trivial tricuspid valve insufficiency. Pulmonary artery systolic pressure is 36 mmHg. Aortic Valve Aortic valve appears tricuspid. There is no aortic stenosis. No aortic valve insufficiency. Pulmonic Valve No eccentric pulmonic valve insufficiency. Great Vessels The aortic root diameter is within normal limits. Pericardium/Pleural No pericardial effusion. MMode/2D Measurements & Calculations LVIDd: 4.3 cm IVSd: 1.0 cm Ao root diam: 3.5 cm LVIDs: 2.7 cm LVPWd: 1.0 cm RVDd: 3.4 cm FS: 36.2 % LAV(MOD-bp): 35.5 ml LVAd ap4: 23.4 cm2 LVAd ap2: 28.2 cm2 LAV(MOD-bp) Indexed: 21.1 ml/m2 LVLd ap4: 7.9 cm LVLd ap2: 7.7 cm LAV(MOD-sp2): 29.8 ml EDV(MOD-sp4): 56.8 ml EDV(MOD-sp2): 87.4 ml LAV(MOD-sp4): 38.0 ml EDV(sp4-el): 58.4 ml EDV(sp2-el): 87.6 ml LVAs ap4: 12.8 cm2 LVAs ap2: 15.0 cm2 LVLs ap4: 7.0 cm LVLs ap2: 6.5 cm ESV(MOD-sp4): 21.1 ml ESV(MOD-sp2): 31.0 ml ESV(sp4-el): 19.9 ml ESV(sp2-el): 29.7 ml EF(MOD-sp4): 62.9 % EF(MOD-sp2): 64.6 % EF(sp4-el): 65.9 % SV(MOD-sp4): 35.7 ml SV(MOD-sp2): 56.4 ml SV(sp4-el): 38.4 ml SI(MOD-sp4): 21.2 ml/m2 SI(MOD-sp2): 33.5 ml/m2 LA A4 area: 15.6 cm2 LA dimension(2D): 3.9 cm RA A4 area: 11.1 cm2 TAPSE: 1.6 cm Doppler Measurements & Calculations MV E max beltran: 62.9 cm/sec Lat Peak E' Beltran: 12.8 cm/sec Med Peak E' Beltran: 9.7 cm/sec MV A max beltran: 79.8 cm/sec E/E' lat: 4.9 E/E' med: 6.5 MV E/A: 0.79 Ao V2 max: 161.8 cm/sec LV V1 max: 120.2 cm/sec PA V2 max: 106.6 cm/sec Ao max P.5 mmHg LV V1 max P.8 mmHg Ao V2 mean: 109.2 cm/sec LV V1 mean P.3 mmHg Ao mean P.5 mmHg LV V1 mean: 84.7 cm/sec Ao V2 VTI: 33.3 cm LV V1 VTI: 24.4 cm AV (velocity ratio): 0.73 TR max beltran: 290.8 cm/sec TR max P.8 mmHg ECHO/Echo Complete Interpretation Summary The LV ejection fraction is 60 %. Left ventricular systolic function is normal. Normal left ventricle. Trivial tricuspid valve insufficiency. Ordering Physician: Elizabeth Butler Referring Physician: Carlitos Locke Performed By: Lizett Ruff RDCS
[2025-02-24] VITALS (8 sets, daily range): BP systolic 105–134; BP diastolic 70–83; PULSE 66–79; RESP 16–24; TEMP 36.5–36.6; O2SAT 90–95
[2025-02-24] MEDS: Ipratropium/Albuterol Sulfate 3 ML AMPUL.NEB INHALATION ×4 (00:35→20:04)
[2025-02-24] MEDS: oxyCODONE 5 MG Tablet 10 MG PO ×5 (00:38→21:23)
[2025-02-24] MEDS: cycloBENZAPRine HCl 10 MG Tablet PO ×2 (03:46→21:23)
[2025-02-24] MEDS: 0.9% Saline Lock 10 ML Syringe IV ×2 (05:00→13:34)
[2025-02-24 06:47] LABS: Absolute Lymphocyte Count 1.33 X10^3/uL (0.83-4.51); Absolute Neutrophil Count 9.7 X10^3/uL (2.0-7.7); Basophil# 0.01 X10^3/uL; Basophil% 0.1 % (0-1); Hematocrit 49.4 % (37-47); Hemoglobin 15.5 g/dL (12.0-15.0); Lymphocyte # 1.33 X10^3/ul (0.83-4.51); Lymphocyte % 11.6 % (19-41); Mean Corp Hgb Conc 31.4 g/dL (32-36); Mean Corpuscular Hgb 31.3 pg (27.0-32.0); Mean Corpuscular Volume 99.6 fL (81-99); Mean Platelet Vol. 11.4 fl (6.2-12.0); Monocyte# 0.35 X10^3/uL; Monocyte% 3.1 % (0-10); NRBC Flagged by Analyzer 0 % (0-5); Neutrophil % 84.8 % (47-70); Platelet Count 219 K/mm3 (150-450); RBC Distribution Width CV 14.1 % (11.6-14.6); RBC Distribution Width SD 52.4 fl (35.1-43.9); Red Blood Count 4.96 M/mm3 (4.2-5.4); White Blood Count 11.4 K/mm3 (4.4-11.0)
[2025-02-24 07:07] LABS: Cholesterol 199 mg/dL (<=200); High Density Lipoprotein 62 mg/dL; Low Density Lipoprotein Calc. 117 mg/dL; Triglycerides 103 mg/dL; Very Low Density Lipoprotein 21 mg/dL (5-40); cholesterol:hdl ratio screen 3.23
[2025-02-24] MEDS: Meloxicam 7.5 MG Tablet PO ×2 (09:08→21:14)
[2025-02-24] MEDS: Azithromycin 250 MG Tablet 500 MG PO (09:12)
[2025-02-24] MEDS: Aspirin 81 MG TAB.CHEW PO (09:12)
[2025-02-24] MEDS: Heparin Injection (Vial) 5,000 UNIT/ML VIAL 5000 UNIT SC ×2 (09:12→21:13)
--- NOTE | 2025-02-24 09:50 | CASEMGMT ---
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 Pt voices understanding and consents to?assessment?at this time.? Pt resting in bed in no distress at this time.? Pt is A/O at this time and answers all questions appropriately.?? Care providers, pharmacy, and demographics verified/updated at this time. PCP: Dr Negrete Specialists: PARKER Arriola, isha mgalan in [place] Preferred Pharmacy: [facility] Insurance: [employer] Prescription Benefit:?yes LNOK: , Shar Living Arrangements: Lives w/ in mobile home, 4 steps to enter. Independent w/ADL's and IADL's. Works [employer], managing the store on the [employer]. Transportation:?Pt states drives self and states no transportation concerns at this time.? also drives. DME: ?States has the following DME: Pt has a pulse ox. She also has a nebulizer, but states it is about 7-8 yrs old and takes a very long time to complete treatment. She would like a new one. Made aware a script can be provided @ dc. She voices appreciation. Pt does not have home O2. Discussed home O2 testing and set-up process. Verbal review of local DME co's that do new home set-ups on the weekends. She chose [facility]. Made aware, if she qualifies for home O2, to call [facility] prior to dc'ing from hospital to make arrangements for delivery of home O2. She voices understanding. Pt states no need for further DME at this time.? HHC/SNF: No hx of either. No needs identified. Pt wishes to return home and states has no concerns with going home at time of discharge.? PLAN:??Home w/script for nebulizer. Follow for possible need of home O2 @ dc. Green sheet on chart w/instructions for nebulizer and home O2, if qualifies. Gisell BAIRDN?RN?CM
--- NOTE | 2025-02-24 16:33 | PCM.PN.HOSP ---
Reason for Visit Reason for Visit: Diagnoses Chronic obstructive pulmonary disease with (acute) exacerbation (02/23/25) Acute respiratory failure with hypoxia (02/23/25) Chest pain, unspecified (02/23/25) Subjective Subjective Patient was seen and examined today, according to the night hospitalist, patient complained of chest pain and EKG was performed which showed T wave inversions over the precordial leads, patient's cardiac enzymes have been negative, her echocardiogram today showed a normal EF without significant valvular heart disease. I told the patient that she would undergo a cardiac stress test on Wednesday. Patient remains on 4 L of oxygen via nasal cannula. Objective Data Objective Data Vital Signs: Vital Signs Temp Pulse Resp BP Pulse Ox O2 Del Method O2 Flow Rate 97.8 F 79 18 120/76 93 Nasal Cannula 4 02/24/25 13:26 02/24/25 13:26 02/24/25 13:26 02/24/25 13:26 02/24/25 13:26 02/24/25 15:57 02/24/25 15:57 Oxygen Flow Rate (L/min) 4 Oxygen Delivery Method Nasal Cannula Weight: 75.614 kg Body Mass Index (BMI) 34.8 Intake & Output: Intake and Output for Last 24 Hours 02/22/25 02/23/25 02/24/25 23:59 23:59 23:59 Intake Total 1000 / 1000 450 / 450 Balance 1000 / 1000 450 / 450 Lab / Micro Data 02/24/25 05:49 02/23/25 13:50 Labs: Laboratory Results - last 24 hr 02/23/25 19:00: Troponin T Hi Sens 4Hr 34 H 02/24/25 05:49: WBC 11.4 H, RBC 4.96, Hgb 15.5 H, Hct 49.4 H, MCV 99.6 H, MCH 31.3, MCHC 31.4 L, RDW Std Deviation 52.4 H, RDW Coeff of Obey 14.1, Plt Count 219, MPV 11.4, Immature Gran % (Auto) 0.400, Neut % (Auto) 84.8 H, Lymph % (Auto) 11.6 L, Hernando % (Auto) 3.1, Eos % (Auto) 0.0, Baso % (Auto) 0.1, Absolute Neuts (auto) 9.7 H, Absolute Lymphs (auto) 1.33, Nucleated RBC % 0, Triglycerides 103, Cholesterol 199, LDL Cholesterol, Calc 117, VLDL Cholesterol 21, HDL Cholesterol 62, Cholesterol/HDL Ratio 3.23 Radiography Diagnostic Testing: Radiology Impression Echocardiogram 02/23/25 22:09 Interpretation Summary The LV ejection fraction is 60 %. Left ventricular systolic function is normal. Normal left ventricle. Trivial tricuspid valve insufficiency. Ordering Physician: Elizabeth Butler Referring Physician: Carlitos Locke Performed By: Lizett Ruff RDCS Physical Exam Narrative alert, oriented x3 and no apparent distress Constitutional Narrative: overweight General Appearance: cooperative HEENT normocephalic and head/scalp atraumatic Eyes PERRL Neck no lymphadenopathy Resp normal respiratory effort, no accessory muscle usage Resp Narrative: diminished throughout Auscultation: crackles bilateral base (faint) and wheezes expiratory wheezes (throughout) Cardio regular rate, regular rhythm and no murmurs, no rubs GI normal to inspection, nondistended, normoactive bowel sounds, soft to palpation, non-tender and non-distended Extremity normal to inspection and no clubbing, cyanosis or edema Neuro oriented x3, no focal neurological deficits Sensorium / Orientation: awake and alert Psych affect normal Assessment & Plan Assessment/Plan (1) Acute hypoxic respiratory failure: PLAN: Plan 1. Acute hypoxic respiratory failure-patient is currently on nasal cannula oxygen 4 L #2 acute exacerbation of COPD with #1-patient will continue on aerosol treatments and IV Solu-Medrol #3 demand ischemia-I do not feel the patient has had a type II [place] #4 pleuritic chest pain-patient will be given oral analgesics as needed #5 chronic pain syndrome-patient is on oxycodone #6 chronic anxiety/depression-patient is on Lexapro Total clinical time spent by myself addressing the patient's medical issues, reviewing all of her data, and collaborating with the patient's care team: 35 minutes Charges/Coding Visit Charges Inpatient E&M: 42465 Subs Hosp L2
[2025-02-24] MEDS: Atorvastatin Calcium 80 MG Tablet PO (21:12)
[2025-02-24] MEDS: Escitalopram Oxalate 20 MG Tablet PO (21:14)
[2025-02-25] VITALS (10 sets, daily range): BP systolic 122–149; BP diastolic 72–97; PULSE 60–80; RESP 16–20; TEMP 36.3–36.5; O2SAT 93–95
[2025-02-25] MEDS: Ipratropium/Albuterol Sulfate 3 ML AMPUL.NEB INHALATION ×4 (01:35→20:50)
[2025-02-25] MEDS: 0.9% Saline Lock 10 ML Syringe IV ×2 (05:42→13:35)
[2025-02-25] MEDS: oxyCODONE 5 MG Tablet 10 MG PO ×4 (05:45→20:35)
[2025-02-25] MEDS: Azithromycin 250 MG Tablet 500 MG PO (09:39)
[2025-02-25] MEDS: Meloxicam 7.5 MG Tablet PO ×2 (09:40→20:36)
[2025-02-25] MEDS: Aspirin 81 MG TAB.CHEW PO (09:41)
[2025-02-25] MEDS: Heparin Injection (Vial) 5,000 UNIT/ML VIAL 5000 UNIT SC ×2 (09:41→20:36)
--- NOTE | 2025-02-25 11:46 | PCM.PN.HOSP ---
Reason for Visit Reason for Visit: Diagnoses Chronic obstructive pulmonary disease with (acute) exacerbation (02/23/25) Acute respiratory failure with hypoxia (02/23/25) Chest pain, unspecified (02/23/25) Subjective Subjective Patient was seen and examined today, she still complains intermittently of chest pain, this examiner does not know if this is musculoskeletal versus cardiac in nature, have decided to order a resting nuclear stress test tomorrow. Patient is currently on 3 L of oxygen via nasal cannula Objective Data Objective Data Vital Signs: Vital Signs Temp Pulse Resp BP Pulse Ox O2 Del Method O2 Flow Rate 97.7 F L 72 16 122/72 H 95 Nasal Cannula 3 02/25/25 09:29 02/25/25 09:29 02/25/25 09:29 02/25/25 09:29 02/25/25 09:29 02/25/25 09:49 02/25/25 09:49 Oxygen Flow Rate (L/min) 3 Oxygen Delivery Method Nasal Cannula Weight: 75.614 kg Body Mass Index (BMI) 34.8 Intake & Output: Intake and Output for Last 24 Hours 02/23/25 02/24/25 02/25/25 23:59 23:59 23:59 Intake Total 1000 / 1000 950 / 950 Balance 1000 / 1000 950 / 950 Lab / Micro Data 02/24/25 05:49 02/23/25 13:50 Physical Exam Narrative alert, oriented x3 and no apparent distress Constitutional Narrative: overweight General Appearance: cooperative HEENT normocephalic and head/scalp atraumatic Eyes PERRL Neck no lymphadenopathy Resp normal respiratory effort, no accessory muscle usage Resp Narrative: diminished throughout Auscultation: crackles bilateral base (faint) and wheezes expiratory wheezes (throughout) Cardio regular rate, regular rhythm and no murmurs, no rubs GI normal to inspection, nondistended, normoactive bowel sounds, soft to palpation, non-tender and non-distended Extremity normal to inspection and no clubbing, cyanosis or edema Neuro oriented x3, no focal neurological deficits Sensorium / Orientation: awake and alert Psych affect normal Assessment & Plan Assessment/Plan (1) Acute hypoxic respiratory failure: PLAN: Plan 1. Acute hypoxic respiratory failure-patient is currently on nasal cannula oxygen 3 L #2 acute exacerbation of COPD with #1-patient will continue on aerosol treatments and IV Solu-Medrol #3 demand ischemia-I do not feel the patient has had a type II [place] #4 pleuritic chest pain-patient will be given oral analgesics as needed, I have ordered a pharmacological stress test tomorrow to rule out coronary disease #5 chronic pain syndrome-patient is on oxycodone #6 chronic anxiety/depression-patient is on Lexapro Total clinical time spent by myself addressing the patient's medical issues, reviewing all of her data, and collaborating with the patient's care team: 35 minutes Charges/Coding Visit Charges Inpatient E&M: 47541 Subs Hosp L2
[2025-02-25] MEDS: cycloBENZAPRine HCl 10 MG Tablet PO (17:12)
[2025-02-25] MEDS: Escitalopram Oxalate 20 MG Tablet PO (20:36)
[2025-02-25] MEDS: Atorvastatin Calcium 80 MG Tablet PO (20:36)
[2025-02-26] VITALS (7 sets, daily range): BP systolic 150–174; BP diastolic 93–94; PULSE 55–86; RESP 16–20; TEMP 36.4–36.6; O2SAT 87–97
--- NOTE | 2025-02-26 00:15 | EKG12_ITS ---
Test Reason : STRESS TEST Blood Pressure : */* mmHG Vent. Rate : 56 BPM Atrial Rate : 56 BPM P-R Int : 178 ms QRS Dur : 90 ms QT Int : 440 ms P-R-T Axes : 53 13 12 degrees QTcB Int : 424 ms Sinus bradycardia Inferior infarct , age undetermined Abnormal ECG When compared with ECG of 23-Feb-2025 21:46, MANUAL COMPARISON REQUIRED DATA IS UNCONFIRMED Confirmed by CHERRY TURPIN, CARLEEN ([id number]), multimedia editor ANGELINA MARTINEZ ([id number]) on 02/27/2025 8:24:26 AM Referred By: Carlitos Locke Confirmed By: CARLEEN CAREY MD
[2025-02-26] MEDS: Ipratropium/Albuterol Sulfate 3 ML AMPUL.NEB INHALATION ×3 (01:15→13:32)
[2025-02-26] MEDS: oxyCODONE 5 MG Tablet 10 MG PO ×3 (03:13→11:58)
[2025-02-26] MEDS: Aspirin 81 MG TAB.CHEW PO (06:04)
--- NOTE | 2025-02-26 10:41 | STRESSREP ---
Stress Test Report Pharmacologic myocardial perfusion stress test. 49-year-old lady with a history of chest pain Resting EKG demonstrates sinus rhythm with a rate of 63 bpm. Resting blood pressure is 122/70 mmHg. 0.4 mg of regadenoson was infused per usual protocol followed by rapid intravenous saline flush injection. Continuous EKG monitoring was performed. The maximum heart rate was 105 bpm which was 61% of max impacted heart rate the maximum workload was 1 metabolic equivalent. At rest there were no ST or T wave changes noted to suggest ischemia and at peak infusion nonspecific ST changes were noted which did not meet the criteria for ischemia. No clinical angina is noted. The final blood pressure was 120/60 mmHg. Myocardial perfusion protocol. 11.0 mCi of technetium 99m sestamibi was injected at rest. 0.4 mg of regadenoson was infused per usual protocol. At peak infusion 33 point mCi of technetium 99m sestamibi was injected stress images were obtained stress and rest images were reconstructed and compared in the short axis vertical long and horizontal long axis. Gated images were also obtained. Perfusion SPECT analysis: Review of the stress images demonstrate normal uptake of tracer noted in all areas of the myocardium. The resting images similar demonstrated normal uptake of tracer noted in all areas of the myocardium. No areas of reversibility are noted to suggest ischemia and no previous infarct is noted. Gated SPECT analysis: The gated ejection fraction is 60%. Conclusion: Normal pharmacologic myocardial perfusion stress test. Preserved ejection fraction.
[2025-02-26] MEDS: Heparin Injection (Vial) 5,000 UNIT/ML VIAL 5000 UNIT SC (11:58)
[2025-02-26] MEDS: Meloxicam 7.5 MG Tablet PO (11:58)
[2025-02-26] MEDS: Azithromycin 250 MG Tablet 500 MG PO (11:58)
--- NOTE | 2025-02-26 13:47 | PCM.DC ---
Discharge Instructions Diet Discharge Diet: No restrictions DC O2, CPAP, BIPAP needs Home O2 Discharge instructions: Yes Type of respiratory needs?: Oxygen Oxygen frequency: With Ambulation Oxygen liters per minute during Ambulation: 2 L Dressing / Incision Discharge Activity: Return to Normal Activity Weight Bearing Status: Full weight bearing Follow Up Care Test Results: Test results from this visit will be discussed in further detail at your follow-up appointment, if applicable. Discharge Plan Admission Admit Date/Time: 02/23/25 16:31 Primary Reason for Your Visit: Exacerbation of COPD Attending Provider: Carlitos Locke Primary Care Provider: Naga Negrete Discharge Orders/Prescriptions Prescriptions: New amitriptyline 25 mg Tablet 50 mg PO QHS Qty: 0 0RF prednisone 20 mg tablet 40 mg PO DAILY Qty: 14 0RF albuterol sulfate 2.5 mg /3 mL (0.083 %) solution for nebulization 2.5 mg inhalation Q4H PRN (Reason: shortness of breath or wheezing) Qty: 180 0RF Continued duloxetine [Cymbalta] 60 mg capsule,delayed release(DR/EC) 60 mg PO DAILY lorazepam 0.5 MG tablet 1 mg PO QHS PRN PRN (Reason: Anxiety) cyclobenzaprine 10 MG tablet 10 mg PO TID PRN PRN (Reason: Muscle Spasm) meloxicam 7.5 MG tablet 7.5 mg PO BID epinephrine 0.3 MG syringe 0.3 mg IM X1 Qty: 2 0RF oxycodone-acetaminophen 10-325 mg tablet 0.5 - 1 tab PO Q8H PRN PRN (Reason: pain) escitalopram oxalate 20 mg tablet 20 mg PO DAILY albuterol sulfate 90 mcg/actuation HFA aerosol inhaler 1 - 2 puff INHALATION Q6H budesonide-formoterol [Symbicort] 160-4.5 mcg/actuation HFA aerosol inhaler 2 puff INHALATION BID albuterol sulfate 2.5 mg /3 mL (0.083 %) solution for nebulization 2.5 mg continuous nebulization Q6H PRN PRN (Reason: shortness of breath or wheezing) Qty: 120 0RF Referrals / Follow Up: Naga Negrete MD [Primary Care Provider] - Within 2 Weeks Disposition Disposition (needs filled in before D/C Order can be placed): Home, Self Care
--- NOTE | 2025-02-26 13:57 | PCM.DC.SUM ---
Providers Date of Admission: 02/23/25 Date of Discharge: 02/26/25 Primary Care Physician: Dr. Naga Negrete MD Reason For Visit: EXACERBATION OF COPD Diagnosis Discharge Diagnosis (1) Acute hypoxic respiratory failure: Status: Acute Code(s): J96.01 - Acute respiratory failure with hypoxia Plan 1. Acute hypoxic respiratory failure-patient is currently on nasal cannula oxygen 3 L #2 acute exacerbation of COPD with #1-patient will continue on aerosol treatments and IV Solu-Medrol #3 demand ischemia-I do not feel the patient has had a type II [place] #4 pleuritic chest pain-patient will be given oral analgesics as needed, I have ordered a pharmacological stress test tomorrow to rule out coronary disease #5 chronic pain syndrome-patient is on oxycodone #6 chronic anxiety/depression-patient is on Lexapro Total clinical time spent by myself addressing the patient's medical issues, reviewing all of her data, and collaborating with the patient's care team: 35 minutes Medications at Discharge Home Medications lorazepam 0.5 mg tablet 1 mg PO QHS PRN PRN Anxiety 10/07/13 cyclobenzaprine 10 mg tablet 10 mg PO TID PRN PRN Muscle Spasm 01/06/15 meloxicam 7.5 mg tablet 7.5 mg PO BID 01/06/15 epinephrine 0.3 mg/0.3 mL injection, auto-injector 0.3 mg (0.3 mL) IM X1 #2 syringes 05/04/16 duloxetine 60 mg capsule,delayed release (Cymbalta) 60 mg PO DAILY mental health 09/25/22 albuterol sulfate 90 mcg/actuation aerosol inhaler 1 - 2 puff inhalation Q6H 02/23/25 budesonide-formoterol HFA 160 mcg-4.5 mcg/actuation aerosol inhaler (Symbicort) 2 puff inhalation BID 02/23/25 escitalopram oxalate 20 mg tablet 20 mg PO DAILY 02/23/25 oxycodone-acetaminophen 10 mg-325 mg tablet 0.5 - 1 tab PO Q8H PRN PRN pain 02/23/25 albuterol sulfate 2.5 mg/3 mL (0.083 %) solution for nebulization 2.5 mg (3 mL) continuous nebulization Q6H PRN PRN shortness of breath or wheezing #120 mL 02/26/25 albuterol sulfate 2.5 mg/3 mL (0.083 %) solution for nebulization 2.5 mg (3 mL) inhalation Q4H PRN shortness of breath or wheezing #180 mL 02/26/25 amitriptyline 25 mg tablet 50 mg (2 x 25 mg) PO QHS #0 tabs 02/26/25 prednisone 20 mg tablet 40 mg (2 x 20 mg) PO DAILY #14 tabs 02/26/25 Hospital Course Operations None Procedures 2-D Echocardiogram and Nuclear stress test Summary of Care Provided Minutes Spent on Discharge: 31 Hospital Course: This 49-year-old white female was seen in the emergency room at [facility] with chief complaint of chest pain. She had lifted some cases of soft drinks the day before at work, she woke up the next morning and felt that she could not take in a deep breath and she had chest discomfort. Patient was noted to have a 67% pulse ox on room air in triage, labs revealed an elevated white blood cell count of 13.1, hemoglobin was 17.3, patient's troponins were 63 and 46, her chemistry profile was unremarkable. Patient's EKG showed inverted T waves in the anterior leads. Patient's chest pain was felt to be atypical, she was admitted to [place] [address] for exacerbation of COPD and treated with aerosol treatments and IV corticosteroids. She underwent an echocardiogram which showed a normal EF, she then underwent a nuclear stress test which was negative for reversible ischemia. At the time of discharge from the hospital on 02/26/2025, patient required 2 L of oxygen on ambulation only. On 02/26/2025, patient was seen and examined: On examination she appeared in good health and spirits, she does not appear to be in any distress. Vital signs as documented. Skin warm and dry and without overt rashes. Neck without JVD, thyroid appears normal, trachea is midline, neck is supple. Lungs clear, normal air movement was noted. Heart exam notable for regular rhythm, normal sounds and absence of murmurs, rubs or gallops. Abdomen unremarkable and without evidence of organomegaly, masses, or abdominal aortic enlargement, bowel sounds are present in all 4 quadrants, no abdominal tenderness was noted. Extremities nonedematous, no cyanosis was noted, no clubbing was noted. Neuro: Cranial nerves II through XII are grossly intact, no focal motor deficits were noted, sensation to light touch and pinprick is intact, motor exam 5/5 throughout. Psych: Patient is alert and oriented x3, she does not appear anxious or depressed, she does not appear agitated. Patient was discharged home in stable condition on 02/26/2025 Weight / BMI Weight Weight: 75.6 kg Body Mass Index (BMI) 34.8 ABG / Lab / Microbiology Data 02/24/25 05:49 02/23/25 13:50 D/C Instructions Discharge Diet: No restrictions Weight Bearing Status: Full weight bearing DC O2, CPAP, BIPAP Needs Home O2 Discharge instructions: Yes Type of respiratory needs?: Oxygen Oxygen frequency: With Ambulation Oxygen liters per minute during Ambulation: 2 L DC home with Oxygen: Yes Home O2 MD Review: I have reviewed the oxygen testing, and the patient qualifies for home oxygen equipment and portability. The patient is mobile in the home and the community. Meaningful Use Info Meaningful Use Meaningful Use Diagnoses (Choose all that apply): None applicable Ischemic Stroke Statin Dosing Therapy Reference: STATIN DOSE THERAPY REFERENCE: * Patients > 75 years receive moderate or high dose statin therapy. * Patients 75 years or YOUNGER should receive HIGH intensity statin dose unless contraindicated. You will be required to document reason for non-treatment if statin daily dose does not meet guidelines. HIGH DOSE STATIN THERAPY DAILY Atorvastatin > than or = to 40 mg Rosuvastatin > than or = to 20 mg Amlodipine + Atorvastatin > than or = to 2.5/40 mg Ezetimibe + Simvastatin 10/80 mg Simvastatin 80mg Discharge Plan Admission Admit Date/Time: 02/23/25 16:31 Primary Reason for Your Visit: Exacerbation of COPD Attending Provider: Carlitos Locke Primary Care Provider: Naga Negrete Discharge Orders/Prescriptions Prescriptions: New amitriptyline 25 mg Tablet 50 mg PO QHS Qty: 0 0RF prednisone 20 mg tablet 40 mg PO DAILY Qty: 14 0RF albuterol sulfate 2.5 mg /3 mL (0.083 %) solution for nebulization 2.5 mg inhalation Q4H PRN (Reason: shortness of breath or wheezing) Qty: 180 0RF Continued duloxetine [Cymbalta] 60 mg capsule,delayed release(DR/EC) 60 mg PO DAILY lorazepam 0.5 MG tablet 1 mg PO QHS PRN PRN (Reason: Anxiety) cyclobenzaprine 10 MG tablet 10 mg PO TID PRN PRN (Reason: Muscle Spasm) meloxicam 7.5 MG tablet 7.5 mg PO BID epinephrine 0.3 MG syringe 0.3 mg IM X1 Qty: 2 0RF oxycodone-acetaminophen 10-325 mg tablet 0.5 - 1 tab PO Q8H PRN PRN (Reason: pain) escitalopram oxalate 20 mg tablet 20 mg PO DAILY albuterol sulfate 90 mcg/actuation HFA aerosol inhaler 1 - 2 puff INHALATION Q6H budesonide-formoterol [Symbicort] 160-4.5 mcg/actuation HFA aerosol inhaler 2 puff INHALATION BID albuterol sulfate 2.5 mg /3 mL (0.083 %) solution for nebulization 2.5 mg continuous nebulization Q6H PRN PRN (Reason: shortness of breath or wheezing) Qty: 120 0RF Referrals / Follow Up: Naga Negrete MD [Primary Care Provider] - Within 2 Weeks Disposition Disposition (needs filled in before D/C Order can be placed): Home, Self Care Charges/Coding Visit Charges Inpatient E&M: 62159 Disch Hosp >30min
--- NOTE | 2025-02-26 14:00 | CASEMGMT ---
Addendum entered by Olive Hanson 02/26/25 14:11: Referral sent for nebulizer as well via [facility] to [facility]. Addendum entered by Olive Hanson 02/26/25 14:07: Referral sent to [facility] for oxygen via [facility] at this time. Original Note: Pt qualifies for home oxygen. MICHAEL CM into pt room, discussed homegoing oxygen instructions. Pt verbalized understanding. Pt is also aware that a nebulizer will be ordered. She would also like this from [facility]. Pt denies any further homegoing needs.
--- NOTE | 2025-03-01 09:14 | CASEMGMT ---
Attached dc summary and sent to [employer] via [facility] per request for PA.
== END 2025-02-26 15:33 | disposition home or self-care (01) | DRG 133 ==
LOC: ED 14:01 → MS3 16:58
PROVIDERS: Internal Medicine; Admitting Provider Internal Medicine; Emergency Provider Emergency Medicine; PCP Family Medicine; Referring Provider Internal Medicine; Visit Provider Internal Medicine
DX: J96.01 Acute respiratory failure with hypoxia (principal); I24.89 Other forms of acute ischemic heart disease; J44.1 Chronic obstructive pulmonary disease with (acute) exacerbation; F32.A Depression, unspecified; J43.9 Emphysema, unspecified; G89.4 Chronic pain syndrome; R07.9 Chest pain, unspecified; Z87.891 Personal history of nicotine dependence; Z79.51 Long term (current) use of inhaled steroids; Z79.1 Long term (current) use of non-steroidal anti-inflammatories (NSAID); Z88.8 Allergy status to other drugs, medicaments and biological substances
CPT/HCPCS: 36415; 71045; 71275; 78452; 80048; 80061; 83880; 84484; 85025; 93005; 93017; 93306; 94640; 99285; A9500; Q9967; A4216; J2785

== ENCOUNTER 2025-09-08 08:52 | Inpatient (IN) | payer MEDICAID, SELFPAY ==
[2025-09-08] VITALS (21 sets, daily range): BP systolic 88–155; BP diastolic 71–90; PULSE 81–101; RESP 18–31; TEMP 36.3–37.1; O2SAT 86–98; BMI 38.2; BMI 36.8
--- NOTE | 2025-09-08 09:00 | EKG12_ITS ---
Test Reason : SOB Blood Pressure : */* mmHG Vent. Rate : 86 BPM Atrial Rate : 86 BPM P-R Int : 178 ms QRS Dur : 76 ms QT Int : 374 ms P-R-T Axes : 36 16 34 degrees QTcB Int : 447 ms Normal sinus rhythm Normal ECG Confirmed by Agustin Mccain ([id number]), editor producer ANGELINA MARTINEZ ([id number]) on 09/14/2025 7:12:55 AM Referred By: Confirmed By: Agustin Mccain
--- NOTE | 2025-09-08 09:04 | ED.VIS.DYS ---
HPI History of Present Illness Chief Complaint: Shortness of Breath Informant: patient and EMS Onset/Context/Timing Onset: Today and Yesterday Context: gradual Timing: Continuous Quality: Positive for Wheezing Current Severity: Moderate Maximum Severity: Moderate Worsened by: Exertion, Lying flat and Coughing Relieved by: Oxygen Associated Symptoms cough Chest Pain: Positive for None Narrative Narrative: 49-year-old female history of COPD on 2 L fluid oxygen at night. States that she started with nonproductive cough yesterday and increased wheezing with decreased shortness of breath. Denies any chest pain. No fever. No hemoptysis. No leg pain or swelling. No history of DVT or PE. Said she is out of her inhaler at home she was using her nebulizer which did not seem to be helping that much. She was brought in by squad. PE Risk Factors: Negative for Cancer, OCP + Smoking + > 35, Prior DVT or PE, Recent immobilization, Recent surgery or Recent travel Prior similar symptoms: Yes Recent Illness/Hospitalization: No [facility] Medical History Chest pain Acute hypoxic respiratory failure Acute exacerbation of chronic obstructive pulmonary disease Alcohol use Arthritis Back pain Gastric reflux Emphysema, unspecified Shortness of breath on exertion Hoarseness Smoker History of stress test Home Medications ?Medication ?Instructions ?Recorded ?Last Taken ?Type lorazepam 0.5 mg tablet 1 mg PO QHS PRN PRN Anxiety 10/07/13 Unknown History cyclobenzaprine 10 mg tablet 10 mg PO TID PRN PRN Muscle Spasm 01/06/15 Unknown History meloxicam 7.5 mg tablet 7.5 mg PO BID 01/06/15 Unknown History epinephrine 0.3 mg/0.3 mL 0.3 mg (0.3 mL) IM X1 #2 syringes 05/04/16 Unknown Rx injection, auto-injector duloxetine 60 mg capsule,delayed 60 mg PO DAILY mental health 09/25/22 Unknown History release (Cymbalta) albuterol sulfate 90 mcg/actuation 1 - 2 puff inhalation Q6H 02/23/25 Unknown History aerosol inhaler budesonide-formoterol HFA 160 2 puff inhalation BID 02/23/25 Unknown History mcg-4.5 mcg/actuation aerosol inhaler (Symbicort) escitalopram oxalate 20 mg tablet 20 mg PO DAILY 02/23/25 Unknown History oxycodone-acetaminophen 10 mg-325 0.5 - 1 tab PO Q8H PRN PRN pain 02/23/25 Unknown History mg tablet albuterol sulfate 2.5 mg/3 mL 2.5 mg (3 mL) continuous 02/26/25 Unknown Rx (0.083 %) solution for nebulization nebulization Q6H PRN PRN shortness of breath or wheezing #120 mL albuterol sulfate 2.5 mg/3 mL 2.5 mg (3 mL) inhalation Q4H PRN 02/26/25 Unknown Rx (0.083 %) solution for nebulization shortness of breath or wheezing #180 mL amitriptyline 25 mg tablet 50 mg (2 x 25 mg) PO QHS #0 tabs 02/26/25 Unknown Rx prednisone 20 mg tablet 40 mg (2 x 20 mg) PO DAILY #14 tabs 02/26/25 Unknown Rx Allergy/AdvReac Type Severity Reaction Status Date / Time diphenhydramine HCl (From Allergy Unknown Verified 09/08/25 08:57 Benadryl) sulfamethoxazole Allergy PT UNSURE Verified 09/08/25 08:57 OF REACTION tramadol Allergy Other Verified 09/08/25 08:57 Surgical History History of tubal ligation History of selective injection of anesthetic agent around lumbar nerve root History of foot surgery History of Social History Smoking Status: Current every day smoker tobacco type: cigarettes Tobacco: How many years used: 30 ROS ROS ED ROS Narrative Cough. Shortness of breath. Wheezing. Constitutional Constitutional ED: Denies chills or fever(s) Eyes Eyes: Denies blurry vision ENT ENT ED: Denies ear pain Cardiovascular Cardiovascular: Denies chest pain Respiratory/Chest Respiratory/Chest: Reports cough and dyspnea; Denies sputum Gastrointestinal Gastrointestinal: Denies abdominal pain, constipation, diarrhea, melena, nausea or vomiting Genitourinary Genitourinary ED: Denies dysuria or hematuria Musculoskeletal Musculoskeletal: Denies arthralgias or back pain Integumentary Denies abscess or Abrasions Neurologic Neurologic: Denies headache(s) Psychiatric Psychiatric: Denies anxiety or depression Endocrine Endocrinology: Denies cold intolerance Hematologic/Lymphatic Hematologic/Lymphatic: Denies easy bleeding Allergic/Immunologic Allergic/Immunologic ED: Denies mouth swelling, tongue swelling or urticaria EXAM Physical Exam Narrative Exam Narrative: 49-year-old female sitting upright in bed vital signs are stable she is afebrile she does not look septic or toxic. Actively wheezing. Currently on 5 L and is 92% on 5 L she is hypoxic without it. H EENT exam pupils round react light. Moist Riis membranes. Neck nontender no JVD. No lymphadenopathy. Back nontender. Lungs inspiratory expiratory wheezing bilaterally. No rales or rhonchi. Equal symmetrical. Heart rate about 100 no murmur. Chest wall ribs nontender. Abdomen soft nontender. Moving all 4 extremities. Nontender no edema normal clinical documentation specialist. Normal dorsi plantarflexion. Neurologically she is awake alert. Answering questions and following commands. Const Vital Signs: 09/08/25 08:52 09/08/25 08:56 09/08/25 09:03 Temperature 98.2 F 98.2 F Temperature Source Oral Oral Pulse Rate 99 93 Respiratory Rate 28 H 26 H Respiratory Effort Respiratory Depth Respiratory Pattern Blood Pressure 129/89 H 129/89 H Blood Pressure Mean 102 102 Pulse Ox 92 92 96 Oxygen Delivery Method Nasal Cannula Nasal Cannula Nasal Cannula Oxygen Flow Rate (L/min) 5 5 5 09/08/25 09:06 09/08/25 09:12 09/08/25 09:42 Temperature Temperature Source Pulse Rate 83 Respiratory Rate 20 H Respiratory Effort Short of Breath Respiratory Depth Normal Respiratory Pattern Normal Tachypnea Blood Pressure Blood Pressure Mean Pulse Ox 93 Oxygen Delivery Method Nasal Cannula Room Air Oxygen Flow Rate (L/min) 5 4 MDM MDM MDM Narrative Medical decision making narrative: 49-year-old female history and exam are consistent with acute exacerbation of COPD rule out pneumonia versus viral syndrome. She be treated with a DuoNeb aerosol and Solu-Medrol. Chest x-ray and labs will be obtained. Repeat exam around 9:58 AM patient still has inspiratory expiratory wheezing. On 5 L she is around 92%. She will be given additional DuoNeb aerosol. She and I have discussed her test results that have returned so far. History & Record Review Discussion w/independent historian: Patient Additional record(s) reviewed:: Prior inpatient record, Prior outpatient record, Prior ED visit and Prior labs Lab Data Attestation: I reviewed the patient's lab results. Lab results narrative: CBC shows white count 11.3. H&H of 15 and 48. Platelets 271. Chemistries show gap of 10. Normal BUN of 8 creatinine 0.56. Glucose 129. Chest x-ray unremarkable chronic changes. COVID, flu and RSV are all negative. Labs: Laboratory Results - last 24 hr 09/08/25 08:59 WBC 11.3 H RBC 4.82 Hgb 15.4 H Hct 48.7 H MCV 101.0 H MCH 32.0 MCHC 31.6 L RDW Std Deviation 51.4 H RDW Coeff of Obey 13.5 Plt Count 271 MPV 10.7 Immature Gran % (Auto) 0.400 Neut % (Auto) 76.6 H Lymph % (Auto) 16.0 L [place] % (Auto) 6.0 Eos % (Auto) 0.6 Baso % (Auto) 0.4 Absolute Neuts (auto) 8.6 H Absolute Lymphs (auto) 1.80 Nucleated RBC % 0 Sodium 140 Potassium 3.9 Chloride 101 Carbon Dioxide 29.3 H Anion Gap 10 BUN 8 Creatinine 0.56 L Estim Creat Clear Calc 114.71 Est GFR (MDRD) Non-Af 111 BUN/Creatinine Ratio 14.7 Glucose 129 H Calcium 8.8 Radiography Chest X-Ray - ED: 2 View, Read by ED Physician, Heart, Lungs, Mediastinum, Bony Structures, No Acute Disease and Chronic Changes Diagnostic Testing: Clinical Impression(s) from Imaging Studies Chest X-Ray 09/08/25 09:25 IMPRESSION: Hypoventilation without acute cardiopulmonary abnormality. Reading Location: [facility] Chest x-ray, 2 views, AP and lateral, interpreted by myself shows normal cardiac silhouette. Normal lung santizo. Chronic changes. No acute process. No pneumonia. No pneumothorax. No pleural effusions. Rhythm Strip Rhythm Strip: Sinus Rhythm Rate: 86 Ectopy: None EKG Initial EKG: Attestation: I personally reviewed and interpreted this EKG as follows: Interpretation: Sinus Rhythm and No Acute Injury Pattern Comments: Normal sinus rhythm rate 86 no acute signs of PA or ischemia. No dysrhythmia. Discharge Plan Dx/Rx/DC Orders Clinical Impression: Hypoxia, COPD exacerbation, Viral URI Disposition Disposition: Acute Care Hospital [facility]
[2025-09-08 09:11] LABS: Hematocrit 48.7 % (37-47); Hemoglobin 15.4 g/dL (12.0-15.0); Immature Granulocytes Count 0.050 X10^3/uL (0.0-0.0); Mean Corp Hgb Conc 31.6 g/dL (32-36); Mean Corpuscular Volume 101.0 fL (81-99); Mean Platelet Vol. 10.7 fl (6.2-12.0); NRBC Flagged by Analyzer 0 % (0-5); Platelet Count 271 K/mm3 (150-450); RBC Distribution Width CV 13.5 % (11.6-14.6); RBC Distribution Width SD 51.4 fl (35.1-43.9); Red Blood Count 4.82 M/mm3 (4.2-5.4); White Blood Count 11.3 K/mm3 (4.4-11.0)
--- NOTE | 2025-09-08 09:25 | RAD_ITS ---
PROCEDURE: CHEST PA AND LATERAL 09/08/2025 REASON FOR EXAM: COUGH AND DYSPNEA TECHNIQUE: Procedure Code: RADCXR Modality: DX Procedure: CHEST PA AND LATERAL COMPARISON: None FINDINGS: Hardware: None Heart: The heart size is normal. Mediastinum: The mediastinal contour is unremarkable. Lungs: Hypoventilation. The lungs are clear. Bones: The bones are unremarkable. RAD/Chest PA and Lateral IMPRESSION: Hypoventilation without acute cardiopulmonary abnormality. Reading Location: [facility]
[2025-09-08 09:59] LABS: Anion Gap 10 (7-18); BUN 8 mg/dL (4-19); BUN/Creat Ratio 14.7 RATIO (10-20); Calcium,Total 8.8 mg/dL (7.6-11.0); Carbon Dioxide 29.3 mmol/L (20.0-29.0); Chloride 101 mmol/L (96-106); Estimated Creatinine Clearance 114.71 ml/min (50-250); Glucose 129 mg/dL (70-99); Potassium 3.9 mmol/L (3.5-5.1)
--- NOTE | 2025-09-08 10:33 | HP.PCM.HOS_ITS ---
HPI - General General Date of Admission: 09/08/25 Date of Service: 09/08/25 Chief Complaint: Shortness of breath HPI Narrative YOVANY SUMNER, is a 49 F who presented to the emergency department [facility] on 09/08/2025 with a chief complaint of shortness of breath. It started yesterday. Patient wheezes 2 L of oxygen at night but no oxygen during the day. She reported that she started with a nonproductive cough yesterday and wheezing with increased shortness of breath. She denied any fever or chills. She has had no sputum production. She has had no chest pain. She had 1 bout of nausea but no emesis. She is out of her home inhaler and tried using her nebulizer but that did not help somewhat so she presented the emergency department. Upon squad arrival she was 79% on room air per discussion with emergency department physician. She was placed on 5 L nasal cannula with improvement to her sats to 92%. Vital signs at the time of presentation the emergency department showed temperature 98.2, heart rate 99, respiratory 22 with tachypnea, blood pressure was 120/89 and pulse ox is 92% on 5 L nasal cannula. CBC shows a mild leukocytosis white count of 11.3 and erythrocytosis that appears to be chronic with a hemoglobin of 15.4. She does have a mild left shift with a 76.6% neutrophilia. Chemistry panel was unremarkable other than some mild hyperglycemia with a nonfasting blood sugar of 129. Chest x-ray was unremarkable for any acute findings Patient was given nebulizers and steroids in the emergency department and placed on supplemental oxygen but remained hypoxic so request for admission was made. She will be admitted for what is expected to be greater than 2 midnights for acute hypoxic respiratory failure related to acute exacerbation of COPD. [facility] Medical History Chest pain Acute hypoxic respiratory failure Acute exacerbation of chronic obstructive pulmonary disease Alcohol use Arthritis Back pain Gastric reflux Emphysema, unspecified Shortness of breath on exertion Hoarseness Smoker History of stress test Home Medications ?Medication ?Instructions ?Recorded ?Last Taken ?Type cyclobenzaprine 10 mg tablet 10 mg PO TID PRN PRN Musc le Spasm 01/06/15 Unknown History meloxicam 7.5 mg tablet 7.5 mg PO BID 01/06/15 Unkno wn History epinephrine 0.3 mg/0.3 mL 0.3 mg (0.3 mL) IM X1 #2 syr inges 05/04/16 Unknown Rx injection, auto-injector duloxetine 60 mg capsule,delayed 60 mg PO DAILY mental health 09/25/22 Unknown History release (Cymbalta) albuterol sulfate 90 mcg/actuation 1 - 2 puff inhalati on Q6H 02/23/25 Unknown History aerosol inhaler budesonide-formoterol HFA 160 2 puff inhalation BID Unknown History mcg-4.5 mcg/actuation aerosol inhaler (Symbicort) escitalopram oxalate 20 mg tablet 20 mg PO DAILY 02/23 Unknown History oxycodone-acetaminophen 10 mg-325 0.5 - 1 tab PO Q8H P RN PRN pain 02/23/25 Unknown History mg tablet albuterol sulfate 2.5 mg/3 mL 2.5 mg (3 mL) continuous 02/26/25 Unknown Rx (0.083 %) solution for nebulization nebulization Q6H P RN PRN shortness of breath or wheezing #120 mL albuterol sulfate 2.5 mg/3 mL 2.5 mg (3 mL) inhalation Q4H PRN 02/26/25 Unknown Rx (0.083 %) solution for nebulization shortness of breat h or wheezing #180 mL amitriptyline 25 mg tablet 50 mg (2 x 25 mg) PO QHS #0 tabs 02/26/25 Unknown Rx prednisone 20 mg tablet 40 mg (2 x 20 mg) PO DAILY # 14 tabs 02/26/25 Unknown Rx Allergy/AdvReac Type Severity Reaction Status Date / Time diphenhydramine HCl (From Allergy Unknown Verified 09/08/25 08:57 Benadryl) sulfamethoxazole Allergy PT UNSURE Verified 09/08/25 08:57 OF REACTION tramadol Allergy Other Verified 09/08/25 08:57 Family History no significant family his no significant family history Surgical History History of tubal ligation History of selective injection of anesthetic agent around lumbar nerve root History of foot surgery History of Social History (Updated 09/08/25 @ 15:[address] Elizabeth Luke, DO) household members: spouse housing: house Smoking Status: Current every day smoker tobacco type: cigarettes Tobacco: How many years used: 30 quit status: considering quitting alcohol intake: current alcohol intake frequency: holidays/special occasions only substance use type: does not use ROS Constitutional Constitutional: Reports fatigue, malaise and weakness; Denies anorexia, change in weight, chills, fever(s), night sweats or other Eyes Eyes: Denies blurry vision, change in eye color, change in vision, discharge from eye(s), double vision, erythema, eye pain, loss of vision or other ENT HEENT: Denies abnormal hearing, dysphagia, ear pain, epistaxis, headache(s), hearing loss, nasal congestion, nasal discharge, post nasal drip, sinus pressure, sore throat or other Cardiovascular Cardiovascular: Reports dyspnea on exertion; Denies chest pain, claudication, edema, lightheadedness, orthopnea, palpitations, paroxysmal nocturnal dyspnea, rapid heart rate, syncope or other Respiratory/Chest Respiratory/Chest: Reports cough, dyspnea, shortness of breath at rest, shortness of breath with exertion and wheezing; Denies excessive phlegm production, hemoptysis, productive cough or other Gastrointestinal Gastrointestinal: Denies abdominal pain, coffee ground emesis, constipation, diarrhea, dyspepsia, hematemesis, hematochezia, loose stools, melena, nausea, vomiting or other Genitourinary Genitourinary: Denies burning urination, difficulty urinating, dysuria, hematuria, nocturia, urinary frequency, urinary hesitancy, urinary incontinence, urinary urgency or other Musculoskeletal Musculoskeletal: Denies arthralgias, back pain, joint pain, joint stiffness, joint swelling, myalgias, neck pain or other Neurologic Neurologic: Denies abnormal gait, abnormal speech, confusion, disequilibrium, dizziness, focal weakness, headache(s), numbness, paresthesias, seizure-like activity, seizures, syncope, tingling, tremor(s) or other Psychiatric Psychiatric: Denies anxiety, depression, homicidal ideation, suicidal ideation or other Endocrine Endocrinology: Denies change in body appearance, cold intolerance, excessive sweating, heat intolerance, polydipsia, polyuria or other Hematologic/Lymphatic Hematologic/Lymphatic: Denies anemia, easy bleeding, easy bruising, lymphadenopathy or other Allergic/Immunologic Allergic/Immunologic: Denies rhinitis, hives, eczemia, asthma or other Patient's Goals Of Care . What would you like to achieve or improve as a result of your hospital stay?: B reathe better and get home without oxygen a possible Vital Signs Vital Signs Vital Signs: 09/08/25 08:52 09/08/25 08:56 09/08/25 09:03 Temperature 98.2 F 98.2 F Temperature Source Oral Oral Pulse Rate 99 93 Respiratory Rate 28 H 26 H Respiratory Effort Respiratory Depth Respiratory Pattern Blood Pressure 129/89 H 129/89 H Blood Pressure Mean 102 102 Pulse Ox 92 92 96 Oxygen Delivery Method Nasal Cannula Nasal Cannula Nasal Cannula Oxygen Flow Rate (L/min) 5 5 5 09/08/25 09:06 09/08/25 09:12 09/08/25 09:42 Temperature Temperature Source Pulse Rate 83 Respiratory Rate 20 H Respiratory Effort Short of Breath Respiratory Depth Normal Respiratory Pattern Normal Tachypnea Blood Pressure Blood Pressure Mean Pulse Ox 93 Oxygen Delivery Method Nasal Cannula Room Air Oxygen Flow Rate (L/min) 5 4 09/08/25 10:03 09/08/25 10:15 09/08/25 10:20 Temperature 98.5 F Temperature Source Oral Pulse Rate 101 H 86 81 Respiratory Rate 30 H 30 H 18 Respiratory Effort Respiratory Depth Respiratory Pattern Normal Blood Pressure 138/87 H 138/87 H Blood Pressure Mean 104 104 Pulse Ox 93 92 Oxygen Delivery Method Nasal Cannula Nasal Cannula Oxygen Flow Rate (L/min) 5 Weight Weight: 82.9 kg Body Mass Index (BMI) 38.2 Physical Exam Const alert, oriented x3, no apparent distress and well nourished; Negative for average body habitus or healthy appearing Constitutional Narrative: Obese, middle-aged, white female, sitting up in bed eating lunch, has conversational dyspnea, but does not appear to be in any distress General Appearance: cooperative HEENT normocephalic, head/scalp atraumatic, hearing grossly normal bilaterally and moist oral mucous membranes HEENT Narrative: Mallampati 3, no thrush Eyes conjunctivae normal Eyes Narrative: No scleral icterus Neck supple Neck Narrative: Neck is short and thick, trachea midline Resp no retractions, no use of accessory muscles and No clear to auscultation bilaterally Resp Narrative: Diffuse scattered inspiratory and expiratory wheezes, mild tachypnea and conversational dyspnea Auscultation: wheezes; Negative for crackles or rhonchi Cardio regular rate, regular rhythm, S1 normal heart sound, S2 normal heart sound, no murmurs, no rub, no gallops and no clicks GI normal to inspection, nondistended, normoactive bowel sounds, soft to palpation and non-tender Extremity no clubbing, cyanosis or edema Extremity Narrative: 2+ pedal pulses, 2+ radial pulses Neuro moves all extremities and no focal motor deficits Speech: speech normal Psych affect normal Psych Narrative: Pleasant, interacts appropriately Results Lab / Micro Data 09/08/25 08:59 09/08/25 08:59 Labs: Laboratory Results - last 24 hr 09/08/25 08:59: WBC 11.3 H, RBC 4.82, Hgb 15.4 H, Hct 48.7 H, MCV 101.0 H, MCH 32.0, MCHC 31.6 L, RDW Std Deviation 51.4 H, RDW Coeff of Obey 13.5, Plt Count 271, MPV 10.7, Immature Gran % (Auto) 0.400, Neut % (Auto) 76.6 H, Lymph % (Auto) 16.0 L, [place] % (Auto) 6.0, Eos % (Auto) 0.6, Baso % (Auto) 0.4, Absolute Neuts (auto) 8.6 H, Absolute Lymphs (auto) 1.80, Nucleated RBC % 0, Sodium 140, Potassium 3.9, Chloride 101, Carbon Dioxide 29.3 H, Anion Gap 10, BUN 8, C reatinine 0.56 L, Estim Creat Clear Calc 114.71, Est GFR (MDRD) Non-Af 111, BUN/Creatinine Ratio 14.7, Glucose 129 H, Calcium 8.8 Micro: Microbiology 09/08/25 08:59 Mucosa - Nose SARS-CoV-2, Influenza & RSV (PCR) - Final Rhythm Strip Rhythm Strip: Sinus Rhythm Rate: 86 Ectopy: None Imaging Radiology Impression Chest X-Ray 09/08/25 09:25 IMPRESSION: Hypoventilation without acute cardiopulmonary abnormality. Reading Location: [facility] Assessment & Plan Assessment/Plan (1) COPD exacerbation: (2) Acute hypoxic respiratory failure: PLAN: Plan Acute hypoxic respiratory failure secondary to acute exacerbation of COPD - Patient with sats in the 70s upon squad arrival on room air which is her baseline oxygen requirement, she was tachypneic with conversational dyspnea - Currently on 5 L nasal cannula - Wean oxygen as able - Will need ambulatory pulse ox prior to discharge - Solu-Medrol 40 every 8 - Scheduled and as needed DuoNebs - Mucinex 1200 p.o. twice daily - Incentive spirometer - Acapella as ordered - COVID/flu/RSV negative - Check respiratory viral panel - Check sputum culture if able to obtain - Chest x-ray shows no infiltrate Leukocytosis - Very mild - Suspect reactive but will monitor with low threshold for starting antibiotics Erythrocytosis - Appears to be chronic - Suspect related to COPD - Recommend outpatient follow-up COPD - Hold home inhalers and restart at discharge - Treatment for exacerbation as noted above Chronic pain - Continue home medication Depression/anxiety - Continue home duloxetine - Continue home Lexapro Obesity - Recommend weight loss - BMI 36.8 - Complicates treatment, prognosis, outcomes DVT prophylaxis - Lovenox 40 subcu daily CODE STATUS - Full code Charges/Coding Visit Charges Inpatient E&M: 71901 Init Hosp L2
[2025-09-08] MEDS: 0.9% Saline Lock 10 ML Syringe IV ×2 (13:07→21:21)
[2025-09-09] VITALS (11 sets, daily range): BP systolic 107–123; BP diastolic 66–74; PULSE 77–89; RESP 16–22; TEMP 36.6–36.8; O2SAT 94–98; BMI 36.7
[2025-09-09] MEDS: 0.9% Saline Lock 10 ML Syringe IV ×3 (05:28→21:19)
[2025-09-09 06:56] LABS: Hematocrit 46.9 % (37-47); Hemoglobin 15.1 g/dL (12.0-15.0); Immature Granulocytes Count 0.060 X10^3/uL (0.0-0.0); Mean Corp Hgb Conc 32.2 g/dL (32-36); Mean Corpuscular Volume 98.9 fL (81-99); Mean Platelet Vol. 10.8 fl (6.2-12.0); NRBC Flagged by Analyzer 0 % (0-5); Platelet Count 289 K/mm3 (150-450); RBC Distribution Width CV 13.6 % (11.6-14.6); RBC Distribution Width SD 50.2 fl (35.1-43.9); Red Blood Count 4.74 M/mm3 (4.2-5.4); White Blood Count 12.0 K/mm3 (4.4-11.0)
[2025-09-09 07:28] LABS: Magnesium 2.2 mg/dL (1.5-2.2)
[2025-09-09 07:30] LABS: AST(SGOT) 13 U/L (<=31); Alanine Aminotransfer ALT/SGPT 10 U/L (<=34); Albumin, Serum 4.0 g/dL (3.5-5.0); Alkaline Phosphatase 79 U/L (35-104); Anion Gap 9 (7-18); BUN 9 mg/dL (4-19); BUN/Creat Ratio 22.0 RATIO (10-20); Calcium,Total 9.1 mg/dL (7.6-11.0); Carbon Dioxide 28.7 mmol/L (20.0-29.0); Chloride 100 mmol/L (96-106); Estimated Creatinine Clearance 146.33 ml/min (50-250); Globulin 2.9 g/dL (2.2-4.2); Glucose 223 mg/dL (70-99); Potassium 5.0 mmol/L (3.5-5.1)
--- NOTE | 2025-09-09 07:58 | PN.HOSP_ITS ---
Reason for Visit Chief Complaint: Shortness of breath Subjective Subjective Oxygen demand is up to 5 L but patient states she feels like she is moving air better and not as tight in her chest. States her chest is starting to loosen up. Encouraged ongoing utilization of incentive spirometer. Objective Data Objective Data Vital Signs: Vital Signs Temp Pulse Resp BP Pulse Ox O2 Del Method O2 Flow Rate 98.2 F 82 22 H 110/66 94 Nasal Cannula 5 09/09/25 02:30 09/09/25 06:45 09/09/25 06:45 09/09/25 02:30 09/09/25 07:36 09/09/25 07:36 09/09/25 07:36 Oxygen Flow Rate (L/min) 5 Oxygen Delivery Method Nasal Cannula Weight: 79.8 kg Body Mass Index (BMI) 36.7 Intake & Output: Intake and Output for Last 24 Hours 09/07/25 09/08/25 09/09/25 23:59 23:59 23:59 Intake Total 240 / 240 Balance 240 / 240 Lab / Micro Data 09/09/25 06:19 09/09/25 06:19 Labs: Laboratory Results - last 24 hr 09/08/25 08:59: WBC 11.3 H, RBC 4.82, Hgb 15.4 H, Hct 48.7 H, MCV 101.0 H, MCH 32.0, MCHC 31.6 L, RDW Std Deviation 51.4 H, RDW Coeff of Obey 13.5, Plt Count 271, MPV 10.7, Immature Gran % (Auto) 0.400, Neut % (Auto) 76.6 H, Lymph % (Auto) 16.0 L, [place] % (Auto) 6.0, Eos % (Auto) 0.6, Baso % (Auto) 0.4, Absolute Neuts (auto) 8.6 H, Absolute Lymphs (auto) 1.80, Nucleated RBC % 0, Sodium 140, Potassium 3.9, Chloride 101, Carbon Dioxide 29.3 H, Anion Gap 10, BUN 8, C reatinine 0.56 L, Estim Creat Clear Calc 114.71, Est GFR (MDRD) Non-Af 111, BUN/Creatinine Ratio 14.7, Glucose 129 H, Calcium 8.8 09/09/25 06:19: WBC 12.0 H, RBC 4.74, Hgb 15.1 H, Hct 46.9, MCV 98.9, MCH 31.9, MCHC 32.2, RDW Std Deviation 50.2 H, RDW Coeff of Obey 13.6, Plt Count 289, MPV 10.8, Immature Gran % (Auto) 0.500, Neut % (Auto) 87.5 H, Lymph % (Auto) 8.9 L, [place] % (Auto) 2.9, Eos % (Auto) 0.0, Baso % (Auto) 0.2, Absolute Neuts (auto) 10.5 H, Absolute Lymphs (auto) 1.07, Nucleated RBC % 0, Sodium 138, Potassium 5.0, Chloride 100, Carbon Dioxide 28.7, Anion Gap 9, BUN 9, Creatinine 0.43 L, Estim Creat Clear Calc 146.33, Est GFR (MDRD) Non-Af 119, BUN/Creatinine Ratio 22.0 H, Glucose 223 H, Calcium 9.1, Phosphorus 3.9, Magnesium 2.2, Total Bilirubin 0.18, AST 13, ALT 10, Alkaline Phosphatase 79, Total Protein 6.9, Albumin 4.0, Globulin 2.9, Albumin/Globulin Ratio 1.4 Micro: Microbiology 09/08/25 10:42 Mucosa - Nose Respiratory Panel (PCR) - Final 09/08/25 08:59 Mucosa - Nose SARS-CoV-2, Influenza & RSV (PCR) - Final Radiography Diagnostic Testing: Radiology Impression Chest X-Ray 09/08/25 09:25 IMPRESSION: Hypoventilation without acute cardiopulmonary abnormality. Reading Location: [facility] Rhythm Strip Rhythm Strip: Sinus Rhythm Rate: 86 Ectopy: None Physical Exam Const alert, oriented x3, no apparent distress and well nourished; Negative for average body habitus or healthy appearing Constitutional Narrative: Obese, middle-aged, white female, sitting up in bed eating breakfast, no conversational dyspnea today, appears comfortable on supplemental oxygen General Appearance: cooperative HEENT normocephalic, head/scalp atraumatic, hearing grossly normal bilaterally and moist oral mucous membranes HEENT Narrative: No thrush Resp normal respiratory effort, no retractions, no use of accessory muscles and No clear to auscultation bilaterally Resp Narrative: Diffuse scattered end expiratory wheezes with improved air movement, no conversational dyspnea or significant tachypnea noted today but still requiring 5 L supplemental oxygen Auscultation: wheezes; Negative for crackles or rhonchi Cardio regular rate, regular rhythm, S1 normal heart sound, S2 normal heart sound, no murmurs, no rub, no gallops and no clicks GI normal to inspection, nondistended, normoactive bowel sounds, soft to palpation and non-tender Extremity no clubbing, cyanosis or edema Extremity Narrative: 2+ pedal pulses, 2+ radial pulses Neuro moves all extremities and no focal motor deficits Speech: speech normal Psych affect normal Psych Narrative: Pleasant, interacts appropriately Assessment & Plan Assessment/Plan (1) COPD exacerbation: (2) Acute hypoxic respiratory failure: PLAN: Plan Acute hypoxic respiratory failure secondary to acute exacerbation of COPD - Patient with sats in the 70s upon squad arrival on room air which is her baseline oxygen requirement, she was tachypneic with conversational dyspnea - Currently on 5 L nasal cannula - Wean oxygen as able - Will need ambulatory pulse ox prior to discharge - Solu-Medrol 40 every 8 - Scheduled and as needed DuoNebs - Mucinex 1200 p.o. twice daily - Incentive spirometer - Acapella as ordered - COVID/flu/RSV negative - Respiratory viral panel is negative - Sputum culture pending - Chest x-ray shows no infiltrate Leukocytosis - Very mild but has trended up likely related to demargination with utilization of steroids - Suspect reactive but will monitor with low threshold for starting antibiotics Steroid-induced hyperglycemia - A1c assessed and is 5.7 so patient with some insulin resistance but not diabetic - Add basal insulin with 10 units daily and a sliding scale as fasting blood sugar this morning is 223 - Wean insulin as steroids taper Erythrocytosis - Appears to be chronic - Suspect related to COPD - Recommend outpatient follow-up COPD - Hold home inhalers and restart at discharge - Treatment for exacerbation as noted above Chronic pain - Continue home medication Depression/anxiety - Continue home duloxetine - Continue home Lexapro Obesity - Recommend weight loss - BMI 36.8 - Complicates treatment, prognosis, outcomes DVT prophylaxis - Lovenox 40 subcu daily CODE STATUS - Full code Charges/Coding Visit Charges Inpatient E&M: 58165 Subs Hosp L2
[2025-09-09] MEDS: Insulin Glargine-YFGN 100 UNIT/ML Pen 10 UNIT SC (11:01)
[2025-09-10] VITALS (12 sets, daily range): BP systolic 118–137; BP diastolic 72–88; PULSE 63–90; RESP 15–20; TEMP 36.3–36.6; O2SAT 94–95; BMI 37.4
[2025-09-10] MEDS: 0.9% Saline Lock 10 ML Syringe IV ×3 (06:20→20:49)
[2025-09-10 07:05] LABS: Hematocrit 45.3 % (37-47); Hemoglobin 14.8 g/dL (12.0-15.0); Immature Granulocytes Count 0.050 X10^3/uL (0.0-0.0); Mean Corp Hgb Conc 32.7 g/dL (32-36); Mean Corpuscular Volume 97.8 fL (81-99); Mean Platelet Vol. 10.8 fl (6.2-12.0); NRBC Flagged by Analyzer 0 % (0-5); Platelet Count 269 K/mm3 (150-450); RBC Distribution Width CV 13.9 % (11.6-14.6); RBC Distribution Width SD 50.4 fl (35.1-43.9); Red Blood Count 4.63 M/mm3 (4.2-5.4); White Blood Count 12.1 K/mm3 (4.4-11.0)
[2025-09-10 07:31] LABS: Anion Gap 8 (7-18); BUN 16 mg/dL (4-19); BUN/Creat Ratio 28.5 RATIO (10-20); Calcium,Total 9.0 mg/dL (7.6-11.0); Carbon Dioxide 32.0 mmol/L (20.0-29.0); Chloride 99 mmol/L (96-106); Estimated Creatinine Clearance 115.56 ml/min (50-250); Glucose 120 mg/dL (70-99); Potassium 4.7 mmol/L (3.5-5.1)
[2025-09-10] MEDS: Insulin Glargine-YFGN 100 UNIT/ML Pen 10 UNIT SC (09:46)
--- NOTE | 2025-09-10 13:42 | CASEMGMT ---
MICHAEL WHITTAKER Assessment Face to Face with patient for initial transition planning/care coordination assessment. MICHAEL WHITTAKER introduced self and role at [facility], pt voices understanding. Pt is A&Ox4 and is resting comfortably in bed and is calm. Care providers, pharmacy, and demographics verified. Admitting dx: Acute Hypoxic RF, COPD LACE Strata: 2 PCP: Naga Negrete Specialists: Denies Preferred Pharmacy: [facility] Insurance: ASA/[employer] Prescription Benefit: Yes LNOK: Shar (H) Living Arrangements: Pt lives with her in a mobile home with 4 steps to enter ADLs/IADLs: Indep, 6-Click score is 24 Transportation: Self, DME: Home oxygen through [employer]. Pt states that she only wears HS. EMail sent to [employer] to verify current orders. Pt states that she has a concentrator, portable tanks ( can bring in @ [place] if needed), pulse ox, inhaler (Pt states that she need a refill rx), and nebulizer. Pt denies further DME uses or needs HHC/SNF: Denies hx of or needs Pt?s goal: Home Plan: Home with pt's once medically ready, follow for additional oxygen needs including updated O2 rx and inhaler needs. Pt states that she feels safe with this plan and denies any further questions or concerns at this time. Report given to SUSANNE RODRIGUEZ CM. London Pedro RN, CM
--- NOTE | 2025-09-10 19:03 | PCM.PN.HOSP ---
Reason for Visit Chief Complaint: Shortness of breath Subjective Subjective Patient was seen and examined today, she is currently on 2 L of oxygen via nasal cannula. Patient still has audible wheezing bilaterally. Objective Data Objective Data Vital Signs: Vital Signs Temp Pulse Resp BP Pulse Ox O2 Del Method O2 Flow Rate 97.7 F L 66 16 126/83 H 94 Nasal Cannula 2 09/10/25 14:23 09/10/25 16:06 09/10/25 16:06 09/10/25 14:23 09/10/25 14:23 09/10/25 14:41 09/10/25 14:41 Oxygen Flow Rate (L/min) 2 Oxygen Delivery Method Nasal Cannula Weight: 81.3 kg Body Mass Index (BMI) 37.4 Intake & Output: Intake and Output for Last 24 Hours 09/08/25 09/09/25 09/10/25 23:59 23:59 23:59 Intake Total 240 / 240 440 / 440 950 / 950 Balance 240 / 240 440 / 440 950 / 950 Lab / Micro Data 09/10/25 06:35 09/10/25 06:35 Labs: Laboratory Results - last 24 hr 09/09/25 21:17: POC Glucose 142 H 09/10/25 06:17: POC Glucose 108 H 09/10/25 06:35: WBC 12.1 H, RBC 4.63, Hgb 14.8, Hct 45.3, MCV 97.8, MCH 32.0, MCHC 32.7, RDW Std Deviation 50.4 H, RDW Coeff of Obey 13.9, Plt Count 269, MPV 10.8, Immature Gran % (Auto) 0.400, Neut % (Auto) 82.6 H, Lymph % (Auto) 12.7 L, [place] % (Auto) 4.2, Eos % (Auto) 0.0, Baso % (Auto) 0.1, Absolute Neuts (auto) 10.0 H, Absolute Lymphs (auto) 1.53, Nucleated RBC % 0, Sodium 139, Potassium 4.7, Chloride 99, Carbon Dioxide 32.0 H, Anion Gap 8, BUN 16, Creatinine 0.55 L, Estim Creat Clear Calc 115.56, Est GFR (MDRD) Non-Af 112, BUN/Creatinine Ratio 28.5 H, Glucose 120 H, Calcium 9.0 09/10/25 09:46: POC Glucose 164 H 09/10/25 12:00: POC Glucose 149 H 09/10/25 16:10: POC Glucose 165 H Micro: Microbiology 09/08/25 16:20 Sputum, Expectorated/Coughed Gram Stain - Final 09/08/25 16:20 Sputum, Expectorated/Coughed Respiratory Culture - Final Mixed normal respiratory kirk. No Streptococcus pneumoniae, beta-hemolytic Streptococcus or Staphylococcus aureus isolated. 09/08/25 10:42 Mucosa - Nose Respiratory Panel (PCR) - Final 09/08/25 08:59 Mucosa - Nose SARS-CoV-2, Influenza & RSV (PCR) - Final Rhythm Strip Rhythm Strip: Sinus Rhythm Rate: 86 Ectopy: None Physical Exam Const alert, oriented x3 and no apparent distress General Appearance: cooperative, well kempt and well developed Orientation / Consciousness: awake, oriented to person, oriented to place and oriented to time HEENT normocephalic, head/scalp atraumatic and moist oral mucous membranes Eyes PERRL, EOMs intact bilaterally and conjunctivae normal Neck supple, no JVD, thyroid normal and no carotid bruits General: trachea midline Resp normal respiratory effort, no retractions and no use of accessory muscles Resp Narrative: Bilateral expiratory wheezes are noted which are moderate Auscultation: wheezes; Negative for rales or rhonchi Cardio regular rate, regular rhythm, S1 normal heart sound, S2 normal heart sound, no murmurs, no rub and no gallops GI normal to inspection, nondistended, normoactive bowel sounds, soft to palpation, non-tender and non-distended Extremity no clubbing, cyanosis or edema Skin no rashes or lesions noted General Skin Exam: no breakdown Neuro oriented x3, CN's II-XII intact bilaterally, no focal motor deficits and no sensory deficits noted Sensorium / Orientation: awake and alert Speech: speech normal Psych affect normal Assessment & Plan Assessment/Plan (1) COPD exacerbation: PLAN: Plan 1. Acute exacerbation of COPD-continue aerosol treatments and IV corticosteroids, reevaluate tomorrow #2 hypoxia secondary to #1-pulse ox will be monitored #3 chronic depression-patient is on Cymbalta and Lexapro Total clinical time spent by myself addressing the patient's medical issues, reviewing all of her data, and collaborating with patient's care team: 35 minutes Charges/Coding Visit Charges Inpatient E&M: 83983 Subs Hosp L2
[2025-09-11] VITALS (8 sets, daily range): BP systolic 132–137; BP diastolic 79–83; PULSE 68–98; RESP 15–22; TEMP 36.6–36.7; O2SAT 87–96; BMI 37.3
[2025-09-11] MEDS: Sodium Chloride 0.65% 1 SPRAY SPRAY.BTL NASAL (06:35)
[2025-09-11] MEDS: Insulin Glargine-YFGN 100 UNIT/ML Pen 10 UNIT SC (10:51)
[2025-09-11] MEDS: 0.9% Saline Lock 10 ML Syringe IV (14:16)
--- NOTE | 2025-09-11 14:26 | PCM.DC ---
Discharge Instructions DC O2, CPAP, BIPAP needs Home O2 Discharge instructions: Yes Type of respiratory needs?: Oxygen Oxygen frequency: Continuous Continuous oxygen liters per minute: 2L and With Ambulation Oxygen liters per minute during Ambulation: 4 L Dressing / Incision Discharge Activity: Return to Normal Activity Weight Bearing Status: Full weight bearing Follow Up Care Test Results: Test results from this visit will be discussed in further detail at your follow-up appointment, if applicable. Discharge Plan Admission Admit Date/Time: 09/08/25 10:34 Primary Reason for Your Visit: Acute exacerbation of COPD Attending Provider: Carlitos Locke Primary Care Provider: Naga Negrete Consulting Providers: Elizabeth Butler Discharge Orders/Prescriptions Prescriptions: New prednisone 20 mg tablet 20 mg PO BID Qty: 18 0RF Rx Instructions: Start on 09/12/2025: 1 twice a day for 4 days, then 1-1/2 daily x 4 days, then 1 daily x 4 days then discontinue Continued duloxetine [Cymbalta] 60 mg capsule,delayed release(DR/EC) 60 mg PO DAILY cyclobenzaprine 10 MG tablet 10 mg PO TID PRN PRN (Reason: Muscle Spasm) meloxicam 7.5 MG tablet 7.5 mg PO BID epinephrine 0.3 MG syringe 0.3 mg IM X1 Qty: 2 0RF oxycodone-acetaminophen 10-325 mg tablet 0.5 - 1 tab PO Q8H PRN PRN (Reason: pain) escitalopram oxalate 20 mg tablet 20 mg PO DAILY albuterol sulfate 90 mcg/actuation HFA aerosol inhaler 1 - 2 puff INHALATION Q6H budesonide-formoterol [Symbicort] 160-4.5 mcg/actuation HFA aerosol inhaler 2 puff INHALATION BID amitriptyline 25 mg Tablet 50 mg PO QHS Qty: 0 0RF albuterol sulfate 2.5 mg /3 mL (0.083 %) solution for nebulization 2.5 mg continuous nebulization Q6H PRN PRN (Reason: shortness of breath or wheezing) Qty: 120 0RF albuterol sulfate 2.5 mg /3 mL (0.083 %) solution for nebulization 2.5 mg inhalation Q4H PRN (Reason: shortness of breath or wheezing) Qty: 180 0RF OXYGEN - Supplemental ([facility] INFORMATIONAL USE ONLY) Patient Comments: 3 LPM while sleeping Discontinued prednisone 20 mg tablet 40 mg PO DAILY Qty: 14 0RF Referrals / Follow Up: Naga Negrete MD [Primary Care Provider, Family Practice] - Within 2 Weeks Disposition Disposition (needs filled in before D/C Order can be placed): Home, Self Care
--- NOTE | 2025-09-11 14:36 | DS.PCM_ITS ---
Providers Date of Admission: 09/08/25 Date of Discharge: 09/11/25 Primary Care Physician: Dr. Naga Negrete MD Reason For Visit: ACUTE HYPOXIC RESPIRATORY FAILURE 2/2 COPD Diagnosis Discharge Diagnosis (1) COPD exacerbation: Status: Chronic Code(s): J44.1 - Chronic obstructive pulmonary disease with (acute) exacerbation Plan 1. Acute exacerbation of COPD-continue aerosol treatments and IV corticosteroids, reevaluate tomorrow #2 hypoxia secondary to #1-pulse ox will be monitored #3 chronic depression-patient is on Cymbalta and Lexapro Total clinical time spent by myself addressing the patient's medical issues, reviewing all of her data, and collaborating with patient's care team: 35 minutes Medications at Discharge Home Medications cyclobenzaprine 10 mg tablet 10 mg PO TID PRN PRN Muscle Spasm 01/06/15 meloxicam 7.5 mg tablet 7.5 mg PO BID 01/06/15 epinephrine 0.3 mg/0.3 mL injection, auto-injector 0.3 mg (0.3 mL) IM X1 #2 syringes 05/04/16 duloxetine 60 mg capsule,delayed release (Cymbalta) 60 mg PO DAILY mental health 09/25/22 albuterol sulfate 90 mcg/actuation aerosol inhaler 1 - 2 puff inhalation Q6H 02/23/25 budesonide-formoterol HFA 160 mcg-4.5 mcg/actuation aerosol inhaler (Symbicort) 2 puff inhalation BID 02/23/25 escitalopram oxalate 20 mg tablet 20 mg PO DAILY 02/23/25 oxycodone-acetaminophen 10 mg-325 mg tablet 0.5 - 1 tab PO Q8H PRN PRN pain 02/23/25 albuterol sulfate 2.5 mg/3 mL (0.083 %) solution for nebulization 2.5 mg (3 mL) continuous nebulization Q6H PRN PRN shortness of breath or wheezing #120 mL 02/26/25 albuterol sulfate 2.5 mg/3 mL (0.083 %) solution for nebulization 2.5 mg (3 mL) inhalation Q4H PRN shortness of breath or wheezing #180 mL 02/26/25 amitriptyline 25 mg tablet 50 mg (2 x 25 mg) PO QHS #0 tabs 02/26/25 OXYGEN - Supplemental ([facility] INFORMATIONAL USE ONLY) Pulmonary Information 09/08/25 albuterol sulfate 90 mcg/actuation aerosol inhaler (Ventolin HFA) 2 puff inhalation Q6H PRN shortness of breath or wheezing #6.7 grams 09/11/25 ipratropium 0.5 mg-albuterol 3 mg (2.5 mg base)/3 mL nebulization soln 3 ml inhalation 4X/DAY #180 mL 09/11/25 prednisone 20 mg tablet 20 mg PO BID #18 tabs 09/11/25 Hospital Course Operations None Procedures None Summary of Care Provided Minutes Spent on Discharge: 31 Hospital Course: This 49-year-old white female was seen in the emergency room at [facility] [place] with complaints of shortness of breath. She had oxygen at home but only used it at night at 2 L/min. Patient complained of a nonproductive cough and increased wheezing. Workup in the emergency room included a CBC which was abnormal for white blood cell count of 11.3, chemistry profile was unremarkable, chest x-ray showed hypoventilation without acute cardiopulmonary abnormality. Patient required 5 L of oxygen via nasal cannula in the emergency room to maintain her pulse ox above 90%. Patient was admitted to [place] [address] for exacerbation of COPD, pulse ox was monitored and she was given aerosol treatments and IV corticosteroids. Patient's respiratory status improved during her hospitalization, on 09/11/2025, patient was seen and examined:alert, oriented x3 and no apparent distress General Appearance: cooperative, well kempt and well developed Orientation / Consciousness: awake, oriented to person, oriented to place and oriented to time HEENT normocephalic, head/scalp atraumatic and moist oral mucous membranes Eyes PERRL, EOMs intact bilaterally and conjunctivae normal Neck supple, no JVD, thyroid normal and no carotid bruits General: trachea midline Resp normal respiratory effort, no retractions and no use of accessory muscles Resp Narrative: Bilateral expiratory wheezes are noted which are moderate Auscultation: wheezes; Negative for rales or rhonchi Cardio regular rate, regular rhythm, S1 normal heart sound, S2 normal heart sound, no murmurs, no rub and no gallops GI normal to inspection, nondistended, normoactive bowel sounds, soft to palpation, non-tender and non-distended Extremity no clubbing, cyanosis or edema Skin no rashes or lesions noted General Skin Exam: no breakdown Neuro oriented x3, CN's II-XII intact bilaterally, no focal motor deficits and no sensory deficits noted Sensorium / Orientation: awake and alert Speech: speech normal Psych affect normal Patient was discharged home in stable condition on 09/11/2025, she required 4 L of oxygen while ambulating and 2 L at rest. Weight / BMI Weight Weight: 80.7 kg Body Mass Index (BMI) 37.3 ABG / Lab / Microbiology Data 09/10/25 06:35 09/10/25 06:35 Laboratory: Laboratory Results - last 24 hr 09/10/25 16:10: POC Glucose 165 H 09/10/25 22:17: POC Glucose 114 H 09/11/25 06:29: POC Glucose 104 09/11/25 10:54: POC Glucose 126 H Microbiology: Microbiology 09/08/25 16:20 Sputum, Expectorated/Coughed Gram Stain - Final 09/08/25 16:20 Sputum, Expectorated/Coughed Respiratory Culture - Final Mixed normal respiratory kirk. No Streptococcus pneumoniae, beta-hemolytic Streptococcus or Staphylococcus aureus isolated. 09/08/25 10:42 Mucosa - Nose Respiratory Panel (PCR) - Final 09/08/25 08:59 Mucosa - Nose SARS-CoV-2, Influenza & RSV (PCR) - Final D/C Instructions Weight Bearing Status: Full weight bearing DC O2, CPAP, BIPAP Needs Home O2 Discharge instructions: Yes Type of respiratory needs?: Oxygen Oxygen frequency: Continuous Continuous oxygen liters per minute: 2L and With Ambulation Oxygen liters per minute during Ambulation: 4 L DC home with Oxygen: Yes Home O2 MD Review: I have reviewed the oxygen testing, and the patient qualifies for home oxygen equipment and portability. The patient is mobile in the home and the community. Meaningful Use Info Meaningful Use Meaningful Use Diagnoses (Choose all that apply): None applicable Discharge Plan Admission Admit Date/Time: 09/08/25 10:34 Primary Reason for Your Visit: Acute exacerbation of COPD Attending Provider: Carlitos Locke Primary Care Provider: Naga Negrete Consulting Providers: Elizabeth Butler Discharge Orders/Prescriptions Prescriptions: New prednisone 20 mg tablet 20 mg PO BID Qty: 18 0RF Rx Instructions: Start on 09/12/2025: 1 twice a day for 4 days, then 1-1/2 daily x 4 days, then 1 daily x 4 days then discontinue albuterol sulfate [Ventolin HFA] 90 mcg/actuation HFA aerosol inhaler 2 puff inhalation Q6H PRN (Reason: shortness of breath or wheezing) Qty: 6.7 0RF ipratropium-albuterol 0.5 mg-3 mg(2.5 mg base)/3 mL solution for nebulization 3 ml inhalation 4X/DAY Qty: 180 0RF Continued duloxetine [Cymbalta] 60 mg capsule,delayed release(DR/EC) 60 mg PO DAILY cyclobenzaprine 10 MG tablet 10 mg PO TID PRN PRN (Reason: Muscle Spasm) meloxicam 7.5 MG tablet 7.5 mg PO BID epinephrine 0.3 MG syringe 0.3 mg IM X1 Qty: 2 0RF oxycodone-acetaminophen 10-325 mg tablet 0.5 - 1 tab PO Q8H PRN PRN (Reason: pain) escitalopram oxalate 20 mg tablet 20 mg PO DAILY albuterol sulfate 90 mcg/actuation HFA aerosol inhaler 1 - 2 puff INHALATION Q6H budesonide-formoterol [Symbicort] 160-4.5 mcg/actuation HFA aerosol inhaler 2 puff INHALATION BID amitriptyline 25 mg Tablet 50 mg PO QHS Qty: 0 0RF albuterol sulfate 2.5 mg /3 mL (0.083 %) solution for nebulization 2.5 mg continuous nebulization Q6H PRN PRN (Reason: shortness of breath or wheezing) Qty: 120 0RF albuterol sulfate 2.5 mg /3 mL (0.083 %) solution for nebulization 2.5 mg inhalation Q4H PRN (Reason: shortness of breath or wheezing) Qty: 180 0RF OXYGEN - Supplemental ([facility] INFORMATIONAL USE ONLY) Patient Comments: 3 LPM while sleeping Discontinued prednisone 20 mg tablet 40 mg PO DAILY Qty: 14 0RF Referrals / Follow Up: Naga Negrete MD [Primary Care Provider, Family Practice] - Within 2 Weeks Disposition Disposition (needs filled in before D/C Order can be placed): Home, Self Care Charges/Coding Visit Charges Inpatient E&M: 86445 Disch Hosp >30min
--- NOTE | 2025-09-11 15:06 | CASEMGMT ---
Addendum entered by Olive Hanson 09/11/25 16:16: Pt does not have regulator for home oxygen tank. [place] [facility] [place] may take a tank from stock if family unable to get regulator. Tank taken from stock. Addendum entered by Olive Hanson 09/11/25 15:54: Provided pt with a simple face mask for homegoing per [employer] request. Pt family to bring in portable tank for homegoing. Original Note: Pt qualifies for increase in home oxygen. [place] [facility] [place] [facility] [place] updated rx as well as order for simple face mask. Pt has dc order placed.
== END 2025-09-11 16:15 | disposition home or self-care (01) | DRG 140 ==
LOC: ED 10:05 → MS3 12:17
PROVIDERS: Admitting Provider Internal Medicine; Emergency Provider Emergency Medicine; PCP Family Medicine; Visit Provider Internal Medicine
DX: J44.1 Chronic obstructive pulmonary disease with (acute) exacerbation (principal); J96.01 Acute respiratory failure with hypoxia; F32.A Depression, unspecified; E66.9 Obesity, unspecified; F17.210 Nicotine dependence, cigarettes, uncomplicated; K21.9 Gastro-esophageal reflux disease without esophagitis; J06.9 Acute upper respiratory infection, unspecified; D72.829 Elevated white blood cell count, unspecified; D75.1 Secondary polycythemia; F41.9 Anxiety disorder, unspecified; G89.29 Other chronic pain; R73.9 Hyperglycemia, unspecified; T38.0X5A Adverse effect of glucocorticoids and synthetic analogues, initial encounter; Z79.51 Long term (current) use of inhaled steroids; Z68.36 Body mass index [BMI] 36.0-36.9, adult; Z79.899 Other long term (current) drug therapy
CPT/HCPCS: 36415; 71046; 80048; 80053; 82962; 83036; 83735; 84100; 85025; 87070; 87205; 87631; 87633; 93005; 94640; 94668; 99252; 99285; 99406; A4216; G0463